=== PATIENT | male | born 1960 | race Caucasian/White ===

== ENCOUNTER 2019-01-17 05:14 | Emergency (ER) | payer OTHER ==
[2019-01-17 05:59] LABS: Absolute Lymphocytes (CBC) 1.9 K/uL (0.7-4.9); Absolute Monocytes 0.6 K/uL (0.1-1.3); Absolute Neutrophil 3.1 K/uL (1.8-8.0); Basophils % 1.3 % (0-1.3); Eosinophils % 2.7 % (0-4.4); Hematocrit 39.7 % (39.6-49.0); Lymphocytes % 32.2 % (15.3-44.8); MPV 8.8 fL (7.6-11.3); Monocytes % 10.5 % (3.3-12.3); RBC Red Blood Cell Count 3.84 M/uL (4.33-5.43)
[2019-01-17 06:19] LABS: Albumin 2.3 g/dL (3.4-5.0); Bilirubin Direct 0.7 mg/dL (0-0.2); Bilirubin Total 0.9 mg/dL (0.2-1.0); Potassium 3.2 mmol/L (3.5-5.1)
--- NOTE | 2019-01-17 06:27 | EDPHYS ---
Physician Documentation [facility] Name: Alejandro Troncoso Age: 58 yrs Sex: Male : 1960 Arrival Date: 01/17/2019 Time: 05:25 Bed 20 Private MD: ED Physician Jayce Fonseca HPI: 01/17 06:13 This 58 yrs old Male presents to ER via EMS with complaints of Abdominal Pain.gs 06:13 The patient presents with abdominal pain that is diffuse. Onset: The symptoms/episode gs began/occurred yesterday. The symptoms do not radiate. Associated signs and symptoms: Pertinent negatives: nausea and vomiting, diarrhea. The symptoms are described as crampy. Modifying factors: The symptoms are alleviated by nothing, the symptoms are aggravated by alcohol. Severity of pain: At its worst the pain was moderate in the emergency department the pain is unchanged. The patient has experienced similar episodes in the past, several times. Historical: - Allergies: 05:15 Codeine; cc3 - PMHx: 05:15 Cirrhosis; Hypertension; PTSD; Bipolar disorder; hepatitis C; cc3 - PSHx: 05:15 Paracentesis; Cholecystectomy; cc3 - Immunization history:: Adult Immunizations up to date. - Social history:: Smoking status: Patient uses tobacco products, smokes one pack cigarettes per day. - Ebola Screening: : No symptoms or risks identified at this time. ROS: 06:13 All other systems are negative. gs Exam: 06:13 Head/Face: Normocephalic, atraumatic. Eyes: Pupils equal round and reactive to light, gs extra-ocular motions intact. Lids and lashes normal. Conjunctiva and sclera are non-icteric and not injected. Cornea within normal limits. Periorbital areas with no swelling, redness, or edema. ENT: Nares patent. No nasal discharge, no septal abnormalities noted. Tympanic membranes are normal and external auditory canals are clear. Oropharynx with no redness, swelling, or masses, exudates, or evidence of obstruction, uvula midline. Mucous membranes moist. Neck: Trachea midline, no thyromegaly or masses palpated, and no cervical lymphadenopathy. Supple, full range of motion without nuchal rigidity, or vertebral point tenderness. No Meningismus. Chest/axilla: Normal chest wall appearance and motion. Nontender with no deformity. No lesions are appreciated. Cardiovascular: Regular rate and rhythm with a normal S1 and S2. No gallops, murmurs, or rubs. Normal PMI, no JVD. No pulse deficits. Respiratory: Lungs have equal breath sounds bilaterally, clear to auscultation and percussion. No rales, rhonchi or wheezes noted. No increased work of breathing, no retractions or nasal flaring. Back: No spinal tenderness. No costovertebral tenderness. Full range of motion. Skin: Warm, dry with normal turgor. Normal color with no rashes, no lesions, and no evidence of cellulitis. MS/ Extremity: Pulses equal, no cyanosis. Neurovascular intact. Full, normal range of motion. Neuro: Awake and alert, GCS 15, oriented to person, place, time, and situation. Cranial nerves II-XII grossly intact. Motor strength 5/5 in all extremities. Sensory grossly intact. Cerebellar exam normal. Normal gait. 06:13 Constitutional: The patient appears in no acute distress, alert, awake. 06:13 Abdomen/GI: Inspection: distension, that is moderate, Palpation: abdomen is soft and non-tender, in all quadrants, rebound tenderness, is not appreciated. 06:26 Musculoskeletal/extremity: Pulses: are normal with no appreciated deficits, Edema, 2+ gs to the left lower thigh, left knee, left midcalf, left ankle, right lower thigh, right knee, right midcalf and right ankle is noted. Vital Signs: 05:15 BP 136 / 89; Pulse 99; Resp 20 S; Temp 98.3(O); Pulse Ox 96% on R/A; Weight 61.23 kg cc3 (R); Height 5 ft. 8 in. (172.72 cm) (R); Pain 7/10; 06:30 BP 133 / 84; Pulse 75; Resp 15 S; Pulse Ox 98% on R/A; cc3 05:15 Body Mass Index 20.53 (61.23 kg, 172.72 cm) cc3 MDM: 05:29 Patient medically screened. gs 06:13 Differential diagnosis: gastritis, non-specific abd pain, pancreatitis. Data reviewed: gs vital signs, nurses notes, lab test result(s). Counseling: I had a detailed discussion with the patient and/or guardian regarding: the historical points, exam findings, and any diagnostic results supporting the discharge/admit diagnosis, lab results, the need for outpatient follow up. Response to treatment: the patient's symptoms have markedly improved after treatment, and as a result, I will discharge patient. 01/17 05:29 Order name: Basic Metabolic Panel; Complete Time: 06:24 01/17 05:29 Order name: CBC with Diff; Complete Time: 06:24 01/17 05:29 Order name: Hepatic Function; Complete Time: 06:24 01/17 05:29 Order name: Lipase; Complete Time: 06:24 01/17 05:29 Order name: IV Saline Lock; Complete Time: 05:48 01/17 05: Order name: AMMONIA; Complete Time: 06: 01/17 05: Order name: Labs collected and sent; Complete Time: 05:48 Administered Medications: No medications were administered Disposition: 01/17/19 06:25 Discharged to Home. Impression: Generalized abdominal pain, Alcoholic cirrhosis of liver, Ascites, Edema, unspecified. - Condition is Stable. - Discharge Instructions: Abdominal Pain, Adult. - Prescriptions for Pepcid 20 mg Oral Tablet - take 1 tablet by ORAL route every 12 hours for 10 days; 15 tablet. - Medication Reconciliation Form, Thank You Letter, Antibiotic Education, Prescription Opioid Use form. - Follow up: Dyana Escobar MD; When: 2 - 3 days; Reason: Re-evaluation by your physician. Signatures: Dispatcher [employer] EDMS David Guan RN RN Jayce Fonseca MD MD Jocelynn Young cc3 Corrections: (The following items were deleted from the chart) 06:27 06:25 01/17/2019 06:25 Discharged to Home. Impression: Generalized abdominal pain; Alcoholic cirrhosis of liver. Condition is Stable. Forms are Medication Reconciliation Form, Thank You Letter, Antibiotic Education, Prescription Opioid Use. Follow up: Dyana Escobar; When: 2 - 3 days; Reason: Re-evaluation by your physician. 07:22 06:27 01/17/2019 06:25 Discharged to Home. Impression: Generalized abdominal pain; hj Alcoholic cirrhosis of liver; Ascites; Edema, unspecified. Condition is Stable. Discharge Instructions: Abdominal Pain, Adult. Prescriptions for Pepcid 20 mg Oral Tablet - take 1 tablet by ORAL route every 12 hours for 10 days; 15 tablet. and Forms are Medication Reconciliation Form, Thank You Letter, Antibiotic Education, Prescription Opioid Use. Follow up: Dyana Escobar; When: 2 - 3 days; Reason: Re-evaluation by your physician. gs
--- NOTE | 2019-01-17 06:27 | ER ---
Nurse's Notes [facility] Name: Alejandro Troncoso Age: 58 yrs Sex: Male : 1960 Arrival Date: 01/17/2019 Time: 05:25 Bed 20 Private MD: Diagnosis: Generalized abdominal pain;Alcoholic cirrhosis of liver;Ascites;Edema, unspecified Presentation: 01/17 05:15 Presenting complaint: EMS states: "Right upper quadrant abdominal pain. Patient had 3 cc3 shots of vodka prior to our arrival" Patient said he's been having this abdominal pain for years. Patient also states having pain on his right scrotal area. Transition of care: patient was not received from another setting of care. Onset of symptoms was January 17, 2019. Risk Assessment: Do you want to hurt yourself or someone else? Patient reports no desire to harm self or others. Initial Sepsis Screen: Does the patient meet any 2 criteria? No. Patient's initial sepsis screen is negative. Does the patient have a suspected source of infection? No. Patient's initial sepsis screen is negative. Care prior to arrival: None. 05:15 Method Of Arrival: EMS: [facility] cc3 05:15 Acuity: IBETH 3 cc3 Triage Assessment: 05:15 General: Appears in no apparent distress. uncomfortable, Behavior is calm, cooperative, cc3 appropriate for age. Pain: Complains of pain in RUQ abdomen, right scrottal area Pain currently is 7 out of 10 on a pain scale. Quality of pain is described as aching, Pain began suddenly. EENT: No signs and/or symptoms were reported regarding the EENT system. Neuro: Level of Consciousness is awake, alert, obeys commands, Oriented to person, place, time, situation, Appropriate for age. Cardiovascular: Denies chest pain, Patient's skin is warm and dry. Respiratory: Airway is patent Respiratory effort is even, unlabored, Respiratory pattern is regular, symmetrical. GI: Abdomen is round distended. : No signs and/or symptoms were reported regarding the genitourinary system. Derm: No signs and/or symptoms reported regarding the dermatologic system. Musculoskeletal: Range of motion: intact in all extremities, Swelling present in bilateral pedal edema. Historical: - Allergies: 05:15 Codeine; cc3 - PMHx: 05:15 Cirrhosis; Hypertension; PTSD; Bipolar disorder; hepatitis C; cc3 - PSHx: 05:15 Paracentesis; Cholecystectomy; cc3 - Immunization history:: Adult Immunizations up to date. - Social history:: Smoking status: Patient uses tobacco products, smokes one pack cigarettes per day. - Ebola Screening: : No symptoms or risks identified at this time. Screenin:15 Abuse screen: Denies threats or abuse. Denies injuries from another. Nutritional cc3 screening: No deficits noted. Tuberculosis screening: No symptoms or risk factors identified. Fall Risk Ambulatory Aid- None/Bed Rest/Nurse Assist (0 pts). Gait- Normal/Bed Rest/Wheelchair (0 pts) Mental Status- Oriented to own ability (0 pts). Assessment: 05:15 General: see triage assessment. cc3 06:35 Reassessment: Patient appears in no apparent distress at this time. Patient and/or cc3 family updated on plan of care and expected duration. Pain level reassessed. Patient is alert, oriented x 3, equal unlabored respirations, skin warm/dry/pink. Dr. Fonseca discharged the patient home but patient said he wants to be rehydrated though explained that he cannot be given fluids because he's already distended on his abdomen and he already has bilateral pedal edema. Dr. Fonseca said he will come to the patient. 06:40 Reassessment: Patient appears in no apparent distress at this time. Patient and/or cc3 family updated on plan of care and expected duration. Pain level reassessed. Patient is alert, oriented x 3, equal unlabored respirations, skin warm/dry/pink. Dr. Fonseca spoke to the patient that he is discharged home and the patient agreed. Contacted the patient's stewarding supervisor Phoebe Avelar at [phone] and she said she will come to fetch the patient. IV cannula removed. Patient waiting for transport home. 07:07 Reassessment: awaiting for a ride;. General: Appears in no apparent distress. hj uncomfortable, Behavior is calm, cooperative, appropriate for age. Pain:. Neuro: Level of Consciousness is awake, alert, obeys commands, Oriented to person, place, time, situation, Appropriate for age. Cardiovascular: Capillary refill < 3 seconds Patient's skin is warm and dry. Respiratory: Airway is patent Respiratory effort is even, unlabored, Respiratory pattern is regular, symmetrical. GI: Bowel sounds present X 4 quads. Abd is soft. : No signs and/or symptoms were reported regarding the genitourinary system. EENT: No signs and/or symptoms were reported regarding the EENT system. Derm: No signs and/or symptoms reported regarding the dermatologic system. Musculoskeletal: No signs and/or symptoms reported regarding the musculoskeletal system. Vital Signs: 05:15 BP 136 / 89; Pulse 99; Resp 20 S; Temp 98.3(O); Pulse Ox 96% on R/A; Weight 61.23 kg cc3 (R); Height 5 ft. 8 in. (172.72 cm) (R); Pain 7/10; 06:30 BP 133 / 84; Pulse 75; Resp 15 S; Pulse Ox 98% on R/A; cc3 05:15 Body Mass Index 20.53 (61.23 kg, 172.72 cm) cc3 ED Course: 05:15 Patient has correct armband on for positive identification. Placed in gown. Bed in low cc3 position. Call light in reach. Side rails up X 1. supervisor alteration workroom on. Pulse ox on. NIBP on. 05:15 Arm band placed on right wrist. Patient notified of wait time. cc3 05:25 Patient arrived in ED. am2 05:29 Jayce Fonseca MD is Attending Physician. gs 05:30 Jocelynn Young is Primary Nurse. cc3 05:36 Triage completed. cc3 05:46 Inserted saline lock: 20 gauge in right antecubital area, using aseptic technique. ea Blood collected. 06:25 Dyana Escobar MD is Referral Physician. gs 06:40 IV discontinued, intact, bleeding controlled, No redness/swelling at site. Pressure cc3 dressing applied. 07:00 Report given to DEMETRIUS Guan. cc3 07:07 David Guan RN is Primary Nurse. hj 07:21 No provider procedures requiring assistance completed. hj Administered Medications: No medications were administered Outcome: 06:25 Discharge ordered by . gs 07:21 Discharged to home ambulatory. hj 07:21 Condition: stable 07:21 Discharge instructions given to patient, Instructed on discharge instructions, follow up and referral plans. medication usage, Demonstrated understanding of instructions, follow-up care, medications, Prescriptions given X 1. 07:22 Patient left the ED. hj Signatures: David Guan RN RN hj Moreno, Amanda am2 Mar Read RN RN ea Starr, Gregory, MD MD Jocelynn Young cc3
== END 2019-01-17 07:22 | disposition home or self-care (01) ==
LOC: ER 05:14
DX: K70.31 Alcoholic cirrhosis of liver with ascites (principal); R60.9 Edema, unspecified; I10 Essential (primary) hypertension; F43.10 Post-traumatic stress disorder, unspecified; F17.210 Nicotine dependence, cigarettes, uncomplicated; Z88.5 Allergy status to narcotic agent
CPT/HCPCS: 36415; 80048; 80076; 82140; 83690; 85025; 99284

== ENCOUNTER 2019-04-19 16:13 | Emergency (ER) | payer OTHER ==
--- OUTSIDE RECORDS SUMMARY | 2019-04-19 16:15 | XMS REPORT ---
:1960 [facility] Address [address] [place] [address] Dr. Lombardo [address] [place] [id number] Care Team Providers Name Role Phone Unavailable Unavailable Unavailable Problems This patient has no known problems. Allergies, Adverse Reactions, Alerts This patient has no known allergies or adverse reactions. Medications This patient has no known medications.
--- OUTSIDE RECORDS SUMMARY | 2019-04-19 16:16 | XMS REPORT ---
:1960 Author Organization [employer] Care Team Providers Name Role Phone Ashley Le Provider Role Unavailable Allergies No Known Allergies Problems Problem Type Condition Code Onset Dates Condition Status Problem Sinus problem J34.9 Active Problem Irritable bowel K58.9 Active Problem Other ascites R18.8 Active Problem Depression F32.9 Active Problem Generalized abdominal pain R10.84 Active Problem Polyarthralgia M25.50 Active Problem Anxiety F41.9 Active Problem Memory problem R41.3 Active Problem Reflux K21.9 Active Problem Rash and nonspecific skin eruption R21 Active Problem Bipolar disorder F31.9 Active Problem Hepatitis C virus infection without B19.20 Active hepatic coma, unspecified chronicity Problem High blood pressure I10 Active Problem Depression screening Z13.31 Active Problem Prostate disorder N42.9 Active Problem Gastroesophageal reflux disease, K21.9 Active esophagitis presence not specified Problem Unspecified cirrhosis of liver K74.60 Active Problem Circulation problem I99.9 Active Problem Ventral hernia without obstruction K43.9 Active or gangrene Problem Umbilical hernia without obstruction K42.9 Active and without gangrene Problem Swelling R60.9 Active Medications No Known Medications Results No Known Results Summary Purpose [employer] Submission
[2019-04-19 16:35] LABS: Absolute Lymphocytes (CBC) 1.7 K/uL (0.7-4.9); Basophils % 0.3 % (0-1.3); Hematocrit 38.9 % (39.6-49.0); Lymphocytes % 18.7 % (15.3-44.8); MPV 8.7 fL (7.6-11.3); RBC Red Blood Cell Count 4.02 M/uL (4.33-5.43)
[2019-04-19 17:01] LABS: Albumin 1.9 g/dL (3.4-5.0); Bilirubin Direct 0.6 mg/dL (0-0.2); Bilirubin Total 1.5 mg/dL (0.2-1.0); Potassium 4.2 mmol/L (3.5-5.1); Protein, Total 7.5 g/dL (6.4-8.2)
[2019-04-19] MEDS ORDERED: ONDANSETRON 4 MG/2 ML VIAL ONE (17:23)
[2019-04-19] MEDS ORDERED: MORPHINE 4 MG/ML SYR ONE ×2 (17:23→19:00)
--- NOTE | 2019-04-19 17:48 | RAD REPORT ---
EXAM DESCRIPTION: CTAbdomen Pelvis W Contrast - 04/19/2019 5:41 pm CLINICAL HISTORY: Abdominal pain. ABD PAIN COMPARISON: Abdomen Pelvis W Contrast dated 03/02/2016; CT ABD PELVIS W CONTRAST dated 03/24/2009 TECHNIQUE: Biphasic CT imaging of the abdomen and pelvis was performed with 100 ml non-ionic IV cont rast. All CT scans are performed using dose optimization technique as appropriate and may include automated exposure control or mA/KV adjustment according to patient size. FINDINGS: The lung bases are clear. Advanced cirrhosis of the liver is present. Cholecystectomy noted. The spleen, pancreas, adrenal glan ds and kidneys within normal limits. 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 Large volume ascites is present. No bowel obstruction. Normal appendix. No evidence of significant lymphadenopathy. Atherosclerosis. No suspicious bony findings. IMPRESSION: Large volume ascites. Advanced liver cirrhosis.
--- NOTE | 2019-04-19 19:15 | ER ---
Nurse's Notes [facility] Name: Alejandro Troncoso Age: 58 yrs Sex: Male : 1960 Arrival Date: 04/19/2019 Time: 16:11 Bed 4 Private MD: Diagnosis: Unspecified cirrhosis of liver;Ascites;Generalized abdominal pain Presentation: 04/19 16:16 Presenting complaint: EMS states: pt has hx of cirrhosis and Hep C, is due for a iw paracentesis, last tapped 13 days ago, called Dr. Escobar's office and was told to come to ER for admission. Transition of care: patient was not received from another setting of care. 16:16 Method Of Arrival: EMS: [facility] iw 16:26 Onset of symptoms was April 19, 2019. Risk Assessment: Do you want to hurt yourself sg or someone else? Patient reports no desire to harm self or others. Initial Sepsis Screen: Does the patient meet any 2 criteria? No. Patient's initial sepsis screen is negative. Does the patient have a suspected source of infection? No. Patient's initial sepsis screen is negative. Care prior to arrival: IV initiated. 20 GA, in the left antecubital area. 16:26 Acuity: IBETH 3 sg Historical: - Allergies: 16:29 Codeine; sg - Home Meds: 16:29 lactulose 10 gram/15 mL (15 mL) Oral soln 15 mL once daily [Active]; ranitidine HCl 150 sg mg Oral tab [Active]; furosemide 20 mg Oral tab 1 tab once daily [Active]; gabapentin 100 mg oral cap 1 caps twide daily for Neuropathic Pain [Active]; spironolactone 50 mg Oral tab 1 tab once daily [Active]; - PMHx: 16:29 Bipolar disorder; Cirrhosis; Hepatitis C; Hypertension; PTSD; sg - PSHx: 16:29 Paracentesis; Cholecystectomy; sg - Immunization history:: Adult Immunizations up to date. - Social history:: Smoking status: Patient uses tobacco products. - Ebola Screening: : Patient negative for fever greater than or equal to 101.5 degrees Fahrenheit, and additional compatible Ebola Virus Disease symptoms Patient denies exposure to infectious person Patient denies travel to an Ebola-affected area in the 21 days before illness onset. Screenin:30 Abuse screen: Denies threats or abuse. Denies injuries from another. Nutritional sg screening: No deficits noted. Tuberculosis screening: No symptoms or risk factors identified. Never had TB. Fall Risk None identified. Assessment: 16:34 General: Appears in no apparent distress. uncomfortable, ill, well developed, well sg nourished, Behavior is cooperative, appropriate for age, smells of cigarette smoke . Pain: Complains of pain in umbilical area, and abdomen Quality of pain is described as aching. Neuro: Level of Consciousness is awake, alert, obeys commands, Oriented to person, place, time, Coil Assembler are equal bilaterally Moves all extremities. Cardiovascular: Patient's skin is warm and dry. Chest pain is denied. Respiratory: Airway is patent Respiratory effort is even, unlabored, Respiratory pattern is regular, symmetrical. GI: Abdomen is round distended, Last BM was April 17, 2019. Bowel sounds present in left upper quadrant, right lower quadrant and left lower quadrant Abd is rigid in right upper quadrant, left upper quadrant, right lower quadrant and left lower quadrant Guarding noted Reports Pain is 10 out of 10 on a pain scale. : No signs and/or symptoms were reported regarding the genitourinary system. EENT: Nares are clear Oral mucosa is moist. Throat is clear. Derm: Skin is thin, Skin is dry, Skin is dusky, pale, Skin temperature is cool. Musculoskeletal: Circulation, motion, and sensation intact. Range of motion: intact in all extremities. 16:50 Reassessment: Patient appears in no apparent distress at this time. pt daughter November at bedside at this time. 17:56 Reassessment: Patient appears in no apparent distress at this time. Patient and/or sg family updated on plan of care and expected duration. Pain level reassessed. Patient is alert, oriented x 3, equal unlabored respirations, skin warm/dry/pink. pt talking calmly with daughter at bedside, pt reports pain is unchanged at this time, bed in low and locked position, the call light is within reach and the side rails remain upx2, no new orders received at this time, will continue to monitor Patient states symptoms have not improved. Neuro: Level of Consciousness is awake, alert, obeys commands, Oriented to person, place, time, situation, Speech is normal, Facial symmetry appears normal. 18:40 Reassessment: Patient appears in no apparent distress at this time. Patient and/or sg family updated on plan of care and expected duration. Pain level reassessed. Patient is alert, oriented x 3, equal unlabored respirations, skin warm/dry/pink. 18:52 Reassessment: Lupis VALENCIA at bedside, updating pt on results and POC, going over DC sg orders as well and care at home with a follow up in office/Clinic tomorrow for evaluation and further treatment, pt stated understanding, awaiting pt daughter to return to the department, awaiting discharge orders as well. 19:40 Reassessment: Patient appears in no apparent distress at this time. Patient is alert, rr5 oriented x 3, equal unlabored respirations, skin warm/dry/pink. awaiting for the transport. 20:10 Reassessment: ED provider speaking to daughter of the patient at bedside. rr5 20:25 Reassessment: Patient appears in no apparent distress at this time. Patient is alert, rr5 oriented x 3, equal unlabored respirations, skin warm/dry/pink. discharge instruction given and explained to patient and professional bass fisherman, agreed for the plan of care. Patient denies pain at this time. Patient states feeling better. Patient states symptoms have improved. Vital Signs: 16:33 BP 153 / 107; Pulse 87; Resp 19; Temp 99.0; Pulse Ox 96% on R/A; Pain 10/10; sg 17:56 BP 137 / 79; Pulse 79; Resp 16; Temp 98.9; Pulse Ox 96% on R/A; sg 18:40 BP 133 / 91; Pulse 79; Resp 17; Pulse Ox 97% on R/A; sg 19:14 BP 124 / 83; Pulse 84; Resp 12; Pulse Ox 100% on R/A; ak1 20:05 BP 125 / 80; Pulse 80; Resp 17; Pulse Ox 99% ; Pain 0/10; rr5 ED Course: 16:11 Patient arrived in ED. iw 16:17 Raghu Patrick PA is PHCP. cp 16:17 Holden Whitney MD is Attending Physician. cp 16:20 No provider procedures requiring assistance completed. Initial lab(s) drawn, by me, sg sent to lab. IV is patent, is intact, with fluids infusing freely, with good blood return, Flushed left antecubital with 5 ml normal saline. 16:23 Noman Guardado, RN is Primary Nurse. sg 16:26 Triage completed. sg 16:26 Arm band placed on. sg 16:34 Patient has correct armband on for positive identification. Placed in gown. Bed in low sg position. Call light in reach. Side rails up X2. media monitor on. Pulse ox on. NIBP on. 17:[address] sg 17:43 CT Abd/Pelvis - IV Contrast Only In Process Unspecified. EDMS 18:18 emergency contact number: November Karyna [phone]. bd 19:12 Dyana Escobar MD is Referral Physician. cp 20:25 IV discontinued, intact, bleeding controlled, No redness/swelling at site. Pressure rr5 dressing applied. Administered Medications: 17:30 Drug: morphine 4 mg Route: IVP; Site: left antecubital; sg 17:54 Follow up: Response: No adverse reaction; Pain is unchanged, physician notified; RASS: sg Alert and Calm (0) 17:30 Drug: Zofran 4 mg Route: IVP; Site: left antecubital; sg 17:54 Follow up: Response: No adverse reaction; Nausea is decreased sg 19:01 Drug: morphine 4 mg Route: IVP; Site: left antecubital; sg 20:00 Follow up: Response: No adverse reaction; RASS: Alert and Calm (0) rr5 Outcome: 19:14 Discharge ordered by MD. cp 20:28 Discharged to home via wheelchair, with family. rr5 20:28 Condition: stable 20:28 Discharge instructions given to patient, family, Instructed on discharge instructions, follow up and referral plans. Demonstrated understanding of instructions, follow-up care. 20:30 Patient left the ED. rr5 Signatures: Dispatcher [employer] EDMS Roberta Giles Noman Guardado, RN Jane Montanez RN RN iw Krenek, Amber, RN RN ak1 Raghu Patrick PA PA cp Roque, Raymond, RN RN rr5
--- NOTE | 2019-04-19 19:16 | EDPHYS ---
Physician Documentation [facility] Name: Alejandro Troncoso Age: 58 yrs Sex: Male : 1960 Arrival Date: 04/19/2019 Time: 16:11 Bed 4 Private MD: ED Physician Holden Whitney HPI: 04/19 16:30 This 58 yrs old Male presents to ER via EMS with complaints of Abdominal cp Distention - Cirrhosis. 16:30 The patient presents with abdominal pain that is diffuse, abdominal distention that is cp diffuse. Onset: The symptoms/episode began/occurred chronic. The symptoms do not radiate. Associated signs and symptoms: Pertinent negatives: blood in stools, chest pain, constipation, fever, palpitations, shortness of breath, testicular pain, vomiting. Patient with history of cirrhosis due to hep C. Was scheduled for routine paracentesis today with DR Escobar but was told to come to ED due to c/o abdominal pain. Historical: - Allergies: 16:29 Codeine; sg - Home Meds: 16:29 lactulose 10 gram/15 mL (15 mL) Oral soln 15 mL once daily [Active]; ranitidine HCl 150 sg mg Oral tab [Active]; furosemide 20 mg Oral tab 1 tab once daily [Active]; gabapentin 100 mg oral cap 1 caps twide daily for Neuropathic Pain [Active]; spironolactone 50 mg Oral tab 1 tab once daily [Active]; - PMHx: 16:29 Bipolar disorder; Cirrhosis; Hepatitis C; Hypertension; PTSD; sg - PSHx: 16:29 Paracentesis; Cholecystectomy; sg - Immunization history:: Adult Immunizations up to date. - Social history:: Smoking status: Patient uses tobacco products. - Ebola Screening: : Patient negative for fever greater than or equal to 101.5 degrees Fahrenheit, and additional compatible Ebola Virus Disease symptoms Patient denies exposure to infectious person Patient denies travel to an Ebola-affected area in the 21 days before illness onset. ROS: 16:35 Constitutional: Negative for body aches, chills, fever, poor PO intake. cp 16:35 Eyes: Negative for injury, pain, redness, and discharge. cp 16:35 Cardiovascular: Negative for chest pain, edema, palpitations. 16:35 Respiratory: Negative for cough, shortness of breath, wheezing. 16:35 Abdomen/GI: Positive for abdominal pain, abdominal distension, Negative for vomiting, diarrhea, constipation, black/tarry stool, rectal bleeding. 16:35 Back: Negative for radiated pain. 16:35 : Negative for urinary symptoms. 16:35 Skin: Negative for cellulitis, rash. 16:35 Neuro: Negative for altered mental status, headache, weakness. 16:35 All other systems are negative. Exam: 16:45 Constitutional: The patient appears in no acute distress, alert, awake, cp non-diaphoretic, non-toxic, well developed, well nourished. 16:45 Head/Face: Normocephalic, atraumatic. cp 16:45 Eyes: Periorbital structures: appear normal, Conjunctiva: normal, no exudate, no injection, Sclera: no appreciated abnormality, Lids and lashes: appear normal, bilaterally. 16:45 ENT: External ear(s): are unremarkable, Nose: is normal, Mouth: Lips: moist, Oral mucosa: pink and intact, moist, Posterior pharynx: is normal, airway is patent, no erythema, no exudate. 16:45 Chest/axilla: Inspection: normal, Palpation: is normal, no crepitus, no tenderness. 16:45 Cardiovascular: Rate: normal, Rhythm: regular, Edema: ankle edema, that is moderate, JVD: is not appreciated. 16:45 Respiratory: the patient does not display signs of respiratory distress, Respirations: normal, no use of accessory muscles, no retractions, no splinting, no tachypnea, labored breathing, is not present, Breath sounds: are clear throughout, no decreased breath sounds, no stridor, no wheezing. 16:45 Abdomen/GI: Inspection: distension, that is severe, Bowel sounds: active, all quadrants, Palpation: soft, in all quadrants, moderate abdominal tenderness, in all quadrants, involuntary guarding, is not appreciated, Hernia: noted in the umbilical area. 16:45 Back: pain, is absent, ROM is normal. 16:45 Skin: no rash present. 16:45 Neuro: Orientation: to person, place \T\ time. Mentation: is normal, Motor: moves all fours. Vital Signs: 16:33 BP 153 / 107; Pulse 87; Resp 19; Temp 99.0; Pulse Ox 96% on R/A; Pain 10/10; sg 17:56 BP 137 / 79; Pulse 79; Resp 16; Temp 98.9; Pulse Ox 96% on R/A; sg 18:40 BP 133 / 91; Pulse 79; Resp 17; Pulse Ox 97% on R/A; sg 19:14 BP 124 / 83; Pulse 84; Resp 12; Pulse Ox 100% on R/A; ak1 20:05 BP 125 / 80; Pulse 80; Resp 17; Pulse Ox 99% ; Pain 0/10; rr5 MDM: 16:20 Patient medically screened. cp 17:00 Differential diagnosis: bowel obstruction, pancreatitis, ascites, liver failure. cp 18:05 Data reviewed: vital signs, nurses notes, lab test result(s), radiologic studies, CT cp scan, I have discussed the patient's presentation/case with the attending Emergency Department Physician;. 18:05 Response to treatment: the patient's symptoms have markedly improved after treatment. cp 18:13 Physician consultation: Dyana Escobar MD was called at 18:10, was contacted at 18:10, regarding patient's condition, and will see patient in office, tomorrow, recommends discharge to home for f/u tomorrow in clinic. 19:13 ED course: VSS. Pain improved. Labs reviewed and stable, CT abdomen/pelvis negative for cp acute findings. Will discharge to home for continued monitoring. 04/19 16:21 Order name: Basic Metabolic Panel; Complete Time: 17:05 04/19 16:21 Order name: CBC with Diff; Complete Time: 17:05 04/19 17:07 Interpretation: Normal except: RBC 4.02; HGB 13.5; HCT 38.9; PLT 124. 04/19 16:21 Order name: Creatinine for Radiology; Complete Time: 17:05 04/19 16:21 Order name: Hepatic Function; Complete Time: 17:05 04/19 17:07 Interpretation: Reviewed. 04/19 16:21 Order name: Lipase; Complete Time: 17:05 04/19 16:21 Order name: AMMONIA; Complete Time: 17:05 04/19 16:21 Order name: IV Saline Lock; Complete Time: 16:23 04/19 16:21 Order name: Labs collected and sent; Complete Time: 16:23 04/19 17:15 Order name: CT Abd/Pelvis - IV Contrast Only; Complete Time: 18:01 cp Administered Medications: 17:30 Drug: morphine 4 mg Route: IVP; Site: left antecubital; sg 17:54 Follow up: Response: No adverse reaction; Pain is unchanged, physician notified; RASS: sg Alert and Calm (0) 17:30 Drug: Zofran 4 mg Route: IVP; Site: left antecubital; sg 17:54 Follow up: Response: No adverse reaction; Nausea is decreased sg 19:01 Drug: morphine 4 mg Route: IVP; Site: left antecubital; sg 20:00 Follow up: Response: No adverse reaction; RASS: Alert and Calm (0) rr5 Disposition: 04/19/19 19:14 Discharged to Home. Impression: Unspecified cirrhosis of liver, Ascites, Generalized abdominal pain. - Condition is Stable. - Discharge Instructions: Abdominal Pain, Adult, Ascites. - Medication Reconciliation Form, Thank You Letter, Antibiotic Education, Prescription Opioid Use form. - Follow up: Dyana Escobar MD; When: Tomorrow; Reason: Recheck today's complaints. - Problem is chronic. - Symptoms have improved. Addendum: 04/21/2019 07:01 Co-signature as Attending Physician, Holden Whitney MD. r n Signatures: Dispatcher [employer] EDNoman Carlin RN RN sg Nieto, Roman, MD MD rn Page, Corey, PA PA cp Roque, Raymond RN RN rr5 Corrections: (The following items were deleted from the chart) 04/19 20:30 19:14 04/19/2019 19:14 Discharged to Home. Impression: Unspecified cirrhosis of liver; rr5 Ascites; Generalized abdominal pain. Condition is Stable. Forms are Medication Reconciliation Form, Thank You Letter, Antibiotic Education, Prescription Opioid Use. Follow up: Dyana Escobar; When: Tomorrow; Reason: Recheck today's complaints. Problem is chronic. Symptoms have improved. cp 04/20 18:51 04/19 18:05 Counseling: I had a detailed discussion with the patient and/or guardian cp regarding: the historical points, exam findings, and any diagnostic results supporting the discharge/admit diagnosis, radiology results, the need for outpatient follow up, for definitive care, a wet washer machine, to return to the emergency department if symptoms worsen or persist or if there are any questions or concerns that arise at home, cp
== END 2019-04-19 20:30 | disposition home or self-care (01) ==
LOC: ER 16:13
DX: K74.60 Unspecified cirrhosis of liver (principal); R18.8 Other ascites; I10 Essential (primary) hypertension; B19.20 Unspecified viral hepatitis C without hepatic coma; F31.9 Bipolar disorder, unspecified; Z88.5 Allergy status to narcotic agent
CPT/HCPCS: 85025; 80048; 36415; 82140; 80076; 83690; 74177; 96375; 96374; 99285; Q9967; J2405

== ENCOUNTER 2019-04-24 14:17 | Observation (INO) | payer OTHER ==
--- OUTSIDE RECORDS SUMMARY | 2019-04-24 14:22 | XMS REPORT ---
:1960 [facility] [address] [place] [address] Dr. Lombardo [address] [place] [id number] Care Team Providers Name Role Phone Unavailable Unavailable Unavailable Problems This patient has no known problems. Allergies, Adverse Reactions, Alerts This patient has no known allergies or adverse reactions. Medications This patient has no known medications.
[2019-04-24] MEDS ORDERED: MORPHINE 4 MG/ML SYR ONE ×2 (15:10→15:55)
[2019-04-24] MEDS ORDERED: ONDANSETRON 4 MG/2 ML VIAL ONE (15:10)
[2019-04-24] MEDS ORDERED: CEFTRIAXONE/SWI 1gm 1 GM/10 ML SYR ONE (15:10)
[2019-04-24 15:54] LABS: Absolute Lymphocytes (CBC) 1.3 K/uL (0.7-4.9); Basophils % 0.7 % (0-1.3); Hematocrit 39.8 % (39.6-49.0); Lymphocytes % 16.7 % (15.3-44.8); MPV 8.2 fL (7.6-11.3); RBC Red Blood Cell Count 4.06 M/uL (4.33-5.43)
[2019-04-24 15:55] LABS: Protime INR 1.6
[2019-04-24 16:14] LABS: Albumin 1.9 g/dL (3.4-5.0); Bilirubin Direct 0.7 mg/dL (0-0.2); Bilirubin Total 1.6 mg/dL (0.2-1.0); Potassium 3.7 mmol/L (3.5-5.1); Protein, Total 7.6 g/dL (6.4-8.2)
[2019-04-24] MEDS ORDERED: LIDOCAINE 1% W/EPI 1:100,000 MDV 20 ML VIAL ONE (17:10)
[2019-04-24] MEDS ORDERED: HYDROMORPHONE HCL 1 MG/ML INJ ONE ×2 (17:32→21:10)
--- NOTE | 2019-04-24 19:51 | ER ---
Nurse's Notes [facility] Name: Alejandro Troncoso Age: 58 yrs Sex: Male : 1960 Arrival Date: 04/24/2019 Time: 14:24 Bed 30 Private MD: Diagnosis: Ascites Presentation: 04/24 14:24 Presenting complaint: EMS states: pt is from PCP scheduled to drain fluid from is ca1 abdomen. He c/o of nausea, vomiting and dizziness. Pt also reports vomiting in the morning with black colored substance possibly blood. Pt also has bilateral wheezes so we gave him A\T\A treatment. Transition of care: patient was received from another setting of care (ambulatory primary care physician practice). Onset of symptoms was April 24, 2019. Risk Assessment: Do you want to hurt yourself or someone else? Patient reports no desire to harm self or others. Initial Sepsis Screen: Does the patient meet any 2 criteria? No. Patient's initial sepsis screen is negative. Does the patient have a suspected source of infection? No. Patient's initial sepsis screen is negative. Care prior to arrival: Medication(s) given: Albuterol Neb x 1, Atrovent Neb x 1, zofran 4 mg, IV initiated. 20 GA, in the right forearm, Glucose check: 91. 14:24 Method Of Arrival: EMS: [facility] ca1 14:24 Acuity: IBETH 3 ca1 Triage Assessment: 14:24 General:. GI: Reports nausea, vomiting. ca1 Historical: - Allergies: 17:23 Codeine; aj1 - Home Meds: 17:23 furosemide 20 mg Oral tab 1 tab once daily [Active]; gabapentin 100 mg Oral cap 1 caps aj1 twide daily for Neuropathic Pain [Active]; lactulose 10 gram/15 mL (15 mL) Oral soln 15 mL once daily [Active]; spironolactone 50 mg Oral tab 1 tab once daily [Active]; ranitidine HCl 150 mg Oral tab [Active]; - PMHx: 17:23 Bipolar disorder; Cirrhosis; Hepatitis C; Hypertension; PTSD; aj1 - Immunization history:: Adult Immunizations up to date. - Social history:: Smoking status: Patient uses tobacco products, smokes 1.5 packs per day. - Ebola Screening: : Patient negative for fever greater than or equal to 101.5 degrees Fahrenheit, and additional compatible Ebola Virus Disease symptoms Patient denies exposure to infectious person Patient denies travel to an Ebola-affected area in the 21 days before illness onset No symptoms or risks identified at this time. - Family history:: not pertinent. Screenin:17 Abuse screen: Denies threats or abuse. Denies injuries from another. Nutritional aj1 screening: No deficits noted. Tuberculosis screening: No symptoms or risk factors identified. 22:40 Fall Risk No fall in past 12 months (0 pts). No secondary diagnosis (0 pts). IV access aj1 (20 points). Ambulatory Aid- None/Bed Rest/Nurse Assist (0 pts). Gait- Normal/Bed Rest/Wheelchair (0 pts) Mental Status- Overestimates/Forgets Limitations (15 pts.). Total [place] Fall Scale indicates Low Risk Score (25-44 pts). As available Patient and Family Educated on Fall Prevention Program and strategies. Assessment: 14:30 General: Appears in no apparent distress. uncomfortable, Behavior is cooperative, aj1 restless. Pain: Complains of pain in abdomen. Neuro: Level of Consciousness is awake, alert, obeys commands, Oriented to person, place, time, situation. Cardiovascular: Heart tones S1 S2 present Patient's skin is warm and dry. Respiratory: Reports shortness of breath Airway is patent Respiratory effort is even, unlabored, Respiratory pattern is regular, symmetrical, Breath sounds with wheezes bilaterally. GI: Abdomen is distended, Abdomen is tender to palpation X 4 quads. Abd is rigid X 4 quads. : No signs and/or symptoms were reported regarding the genitourinary system. EENT: No signs and/or symptoms were reported regarding the EENT system. Derm: Skin is dusky. Musculoskeletal: No signs and/or symptoms reported regarding the musculoskeletal system. Circulation, motion, and sensation intact. 15:30 Reassessment: Patient appears in no apparent distress at this time. No changes from aj1 previously documented assessment. Patient and/or family updated on plan of care and expected duration. Pain level reassessed. Patient is alert, oriented x 3, equal unlabored respirations, skin warm/dry/pink. 16:30 Reassessment: Patient and/or family updated on plan of care and expected duration. Pain aj1 level reassessed. General: Appears in no apparent distress. comfortable, Behavior is calm, cooperative. Neuro: Level of Consciousness is awake, alert, obeys commands, Oriented to person, place, time, situation. Cardiovascular: Heart tones S1 S2 present Patient's skin is warm and dry. Respiratory: Airway is patent Respiratory effort is even, unlabored, Respiratory pattern is regular, symmetrical. GI: Abdomen is distended. Derm: Skin is dusky. Musculoskeletal: Circulation, motion, and sensation intact. 17:24 Reassessment: Patient appears in no apparent distress at this time. No changes from aj1 previously documented assessment. Patient and/or family updated on plan of care and expected duration. Pain level reassessed. Patient is alert, oriented x 3, equal unlabored respirations, skin warm/dry/pink. 18:40 Reassessment: Patient appears in no apparent distress at this time. No changes from aj1 previously documented assessment. Patient and/or family updated on plan of care and expected duration. Pain level reassessed. Patient is alert, oriented x 3, equal unlabored respirations, skin warm/dry/pink. 19:00 Reassessment: Dr. Wu at bedside performing paracentesis. aj1 19:40 Reassessment: Patient and/or family updated on plan of care and expected duration. Pain aj1 level reassessed. General: Appears in no apparent distress. comfortable, Behavior is calm, cooperative. Neuro: Level of Consciousness is awake, alert, obeys commands, Oriented to person, place, time, situation. Cardiovascular: Patient's skin is warm and dry. Rhythm is sinus rhythm. Respiratory: Airway is patent Respiratory effort is even, unlabored, Respiratory pattern is regular, symmetrical. GI: Abdomen is distended. : No signs and/or symptoms were reported regarding the genitourinary system. Derm: Skin is dusky. Musculoskeletal: Circulation, motion, and sensation intact. 20:40 Reassessment: Patient appears in no apparent distress at this time. No changes from aj1 previously documented assessment. Patient and/or family updated on plan of care and expected duration. Pain level reassessed. Patient is alert, oriented x 3, equal unlabored respirations, skin warm/dry/pink. 21:40 Reassessment: Patient and/or family updated on plan of care and expected duration. Pain aj1 level reassessed. General: Appears in no apparent distress. comfortable, Behavior is calm, cooperative. Neuro: Level of Consciousness is awake, alert, obeys commands, Oriented to person, place, time, situation. Cardiovascular: Patient's skin is warm and dry. Rhythm is sinus rhythm. Respiratory: Airway is patent Respiratory effort is even, unlabored, Respiratory pattern is regular, symmetrical. GI: Abdomen is distended. Derm: Skin is dusky. Musculoskeletal: Circulation, motion, and sensation intact. 22:41 Reassessment: Patient appears in no apparent distress at this time. No changes from aj1 previously documented assessment. Patient and/or family updated on plan of care and expected duration. Pain level reassessed. Patient is alert, oriented x 3, equal unlabored respirations, skin warm/dry/pink. Vital Signs: 14:24 BP 118 / 79; Pulse 93; Resp 19 S; Temp 98.2(O); Pulse Ox 99% on R/A; Weight 68.04 kg ca1 (R); Height 5 ft. 8 in. (172.72 cm) (R); Pain 7/10; 15:30 BP 138 / 92; Pulse 81; Resp 18; Pulse Ox 100% on R/A; aj1 16:30 BP 120 / 89; Pulse 77; Resp 18; Pulse Ox 100% on R/A; aj1 17:25 BP 120 / 74; Pulse 83; Resp 18; Pulse Ox 100% on R/A; aj1 18:04 BP 134 / 89; Pulse 92; Resp 18; Pulse Ox 99% ; lt1 18:40 BP 103 / 70; Pulse 88; Resp 18; Pulse Ox 98% on R/A; aj1 19:00 BP 133 / 75; Pulse 105; Resp 16; Pulse Ox 99% on R/A; aj1 19:30 BP 149 / 90; Pulse 100; Resp 18; Pulse Ox 100% on R/A; aj1 20:00 BP 136 / 94; Pulse 94; Resp 18; Pulse Ox 99% on R/A; aj1 14:24 Body Mass Index 22.81 (68.04 kg, 172.72 cm) ca1 ED Course: 14:24 Patient arrived in ED. ca1 14:24 Geneva Wu MD is Attending Physician. ma2 14:24 Arm band placed on. ca1 14:28 Triage completed. ca1 15:07 Bernadette Gordon RN is Primary Nurse. aj1 17:17 Patient has correct armband on for positive identification. aj1 19:50 Geneva Arias MD is Hospitalizing Provider. ma2 22:00 Report given to DEMETRIUS Andrews. aj1 22:39 No provider procedures requiring assistance completed. Patient admitted, IV remains in aj1 place. Administered Medications: 15:00 Drug: Zofran 4 mg Route: IVP; Site: right antecubital; dm5 16:00 Follow up: Response: No adverse reaction aj1 15:00 Drug: morphine 4 mg Route: IVP; Site: right antecubital; dm5 16:00 Follow up: Response: No adverse reaction; Pain is decreased; RASS: Alert and Calm (0) aj1 15:59 Drug: Rocephin 1 grams Route: IV; Rate: calculated rate; Site: right antecubital; aj1 16:02 Follow up: IV Status: Completed infusion; IV Intake: 10ml aj1 16:00 Drug: morphine 4 mg {Note: RASS score 0- patient is alert.} Route: IVP; Site: right aj1 antecubital; 21:33 Follow up: Response: No adverse reaction; Anxiety decreased; RASS: Alert and Calm (0) aj1 17:36 Drug: Dilaudid 1 mg Route: IVP; Site: right antecubital; rv 21:33 Follow up: Response: No adverse reaction; Pain is decreased; RASS: Alert and Calm (0) aj1 19:00 Drug: Lidocaine-Epinephrine -1%: (1:100,000) 20 ml {Note: Administered to by Alzahri.} aj1 Volume: 20 ml; Route: Infiltration; 21:32 Follow up: Response: No adverse reaction aj1 21:00 Drug: Dilaudid 1 mg Route: IVP; Site: right antecubital; aj1 21:35 Follow up: Response: No adverse reaction; Pain is decreased; RASS: Alert and Calm (0) aj1 Intake: 16:02 IV: 10ml; Total: 10ml. aj1 Output: 22:34 Urine: 70ml (Voided); Total: 70ml. ca1 Outcome: 19:50 Decision to Hospitalize by Provider. ma2 22:41 Admitted to Med/surg accompanied by tech, via wheelchair, with chart. aj1 22:41 Condition: stable 22:41 Discharge instructions given to patient, family, Instructed on the need for admit, Demonstrated understanding of instructions. 22:42 Patient left the ED. aj1 Signatures: Bernadette Gordon RN RN aj1 Ilana Medina, RN RN dm5 Geneva Wu MD MD ma2 Venu Cee RN RN rv Karina Valdez RN RN ca1 Emily Lopez 1
--- NOTE | 2019-04-24 19:52 | EDPHYS ---
Physician Documentation [facility] Name: Alejandro Troncoso Age: 58 yrs Sex: Male : 1960 Arrival Date: 04/24/2019 Time: 14:24 Bed 30 Private MD: ED Physician Geneva Wu HPI: 04/24 19:47 This 58 yrs old Male presents to ER via EMS with complaints of ma2 Nausea/Vomiting. 19:47 The patient presents to the emergency department with nausea, vomiting. Onset: The ma2 symptoms/episode began/occurred gradually, 1 day(s) ago. Possible causes: unknown. Associated signs and symptoms: Pertinent positives: abdominal pain, Pertinent negatives: anorexia, constipation, dysuria, flatulence. Severity of symptoms: At their worst the symptoms were moderate in the emergency department the symptoms are unchanged. The patient has not experienced similar symptoms in the past, The patient has experienced similar episodes in the past. send by dr. maguire for possible sbp. Historical: - Allergies: 17:23 Codeine; aj1 - Home Meds: 17:23 furosemide 20 mg Oral tab 1 tab once daily [Active]; gabapentin 100 mg Oral cap 1 caps aj1 twide daily for Neuropathic Pain [Active]; lactulose 10 gram/15 mL (15 mL) Oral soln 15 mL once daily [Active]; spironolactone 50 mg Oral tab 1 tab once daily [Active]; ranitidine HCl 150 mg Oral tab [Active]; - PMHx: 17:23 Bipolar disorder; Cirrhosis; Hepatitis C; Hypertension; PTSD; aj1 - Immunization history:: Adult Immunizations up to date. - Social history:: Smoking status: Patient uses tobacco products, smokes 1.5 packs per day. - Ebola Screening: : Patient negative for fever greater than or equal to 101.5 degrees Fahrenheit, and additional compatible Ebola Virus Disease symptoms Patient denies exposure to infectious person Patient denies travel to an Ebola-affected area in the 21 days before illness onset No symptoms or risks identified at this time. - Family history:: not pertinent. ROS: 19:47 Constitutional: Negative for fever, chills, and weight loss. ma2 19:47 All other systems are negative. Exam: 19:47 Constitutional: This is a well developed, well nourished patient who is awake, alert, ma2 and in no acute distress. Head/Face: Normocephalic, atraumatic. Eyes: Pupils equal round and reactive to light, extra-ocular motions intact. Lids and lashes normal. Conjunctiva and sclera are non-icteric and not injected. Cornea within normal limits. Periorbital areas with no swelling, redness, or edema. ENT: Nares patent. No nasal discharge, no septal abnormalities noted. Tympanic membranes are normal and external auditory canals are clear. Oropharynx with no redness, swelling, or masses, exudates, or evidence of obstruction, uvula midline. Mucous membranes moist. Chest/axilla: Normal chest wall appearance and motion. Nontender with no deformity. No lesions are appreciated. Cardiovascular: Regular rate and rhythm with a normal S1 and S2. No gallops, murmurs, or rubs. Normal PMI, no JVD. No pulse deficits. Respiratory: Lungs have equal breath sounds bilaterally, clear to auscultation and percussion. No rales, rhonchi or wheezes noted. No increased work of breathing, no retractions or nasal flaring. Back: No spinal tenderness. No costovertebral tenderness. Full range of motion. 19:47 Abdomen/GI: Inspection: distension, Palpation: mild abdominal tenderness, rebound tenderness, Liver: is firm, is enlarged. Vital Signs: 14:24 BP 118 / 79; Pulse 93; Resp 19 S; Temp 98.2(O); Pulse Ox 99% on R/A; Weight 68.04 kg ca1 (R); Height 5 ft. 8 in. (172.72 cm) (R); Pain 7/10; 15:30 BP 138 / 92; Pulse 81; Resp 18; Pulse Ox 100% on R/A; aj1 16:30 BP 120 / 89; Pulse 77; Resp 18; Pulse Ox 100% on R/A; aj1 17:25 BP 120 / 74; Pulse 83; Resp 18; Pulse Ox 100% on R/A; aj1 18:04 BP 134 / 89; Pulse 92; Resp 18; Pulse Ox 99% ; lt1 18:40 BP 103 / 70; Pulse 88; Resp 18; Pulse Ox 98% on R/A; aj1 19:00 BP 133 / 75; Pulse 105; Resp 16; Pulse Ox 99% on R/A; aj1 19:30 BP 149 / 90; Pulse 100; Resp 18; Pulse Ox 100% on R/A; aj1 20:00 BP 136 / 94; Pulse 94; Resp 18; Pulse Ox 99% on R/A; aj1 14:24 Body Mass Index 22.81 (68.04 kg, 172.72 cm) ca1 Procedures: 19:47 Paracentesis: The risks and benefits of the procedure were discussed with the patient ma2 or guardian in detail, aseptic technique was employed throughout the procedure, the catheter was placed in the left upper quadrant, appoximately 6 liters of fluid was removed, the fluid was serous, the patient tolerated the procedure well, the patient did not experience any apparent complications. MDM: 14:24 Patient medically screened. ma2 19:47 Differential diagnosis: cholecystitis, pancreatitis, viral gastroenteritis, SBP. Data ma2 reviewed: vital signs, nurses notes. Counseling: I had a detailed discussion with the patient and/or guardian regarding: the historical points, exam findings, and any diagnostic results supporting the discharge/admit diagnosis, the presence of at least one elevated blood pressure reading (>120/80) during this emergency department visit, the need for outpatient follow up. Response to treatment: the patient's symptoms have mildly improved after treatment. ED course: discussed with dr. elias . 04/24 14:38 Order name: Basic Metabolic Panel; Complete Time: 16:34 [facility] 04/24 14:38 Order name: CBC with Diff; Complete Time: 16:03 [facility] 04/24 14:38 Order name: Creatinine for Radiology; Complete Time: 16:34 [facility] 04/24 14:38 Order name: Hepatic Function; Complete Time: 16:34 [facility] 04/24 14:38 Order name: Lipase; Complete Time: 16:34 [facility] 04/24 14:50 Order name: Blood Culture Adult (2) [facility] 04/24 15:06 Order name: PT-INR; Complete Time: 16:34 [facility] 04/24 15:06 Order name: AMMONIA; Complete Time: 16:34 [facility] 04/24 15:14 Order name: Fluid Cell Count,Body [facility] 04/24 15:14 Order name: Misc. Lab Test [facility] 04/24 20:01 Order name: Body Fluid Culture EDMI 04/24 14:38 Order name: IV Saline Lock; Complete Time: 15:48 wi2 04/24 20:04 Order name: Miscellaneous Test Lab [facility] 04/24 21:13 Order name: CONS Pharmacy Consult EDMI 04/24 21:13 Order name: Full Liquid EDMI 04/24 21:13 Order name: CBC with Automated Diff EDMS 04/24 21:13 Order name: CBC with Automated Diff EDMI 04/24 21:13 Order name: Comprehensive Metabolic Panel [facility] 04/24 21:13 Order name: Comprehensive Metabolic Panel [facility] 04/24 22:35 Order name: Urine Dipstick--Ancillary (enter results) [facility] 04/24 14:38 Order name: Labs collected and sent; Complete Time: 15:48 ma2 04/24 14:38 Order name: Urine Dipstick-Ancillary (obtain specimen); Complete Time: 22:34 wi2 04/24 14:49 Order name: Dressing - Wound; Complete Time: 21:30 [facility] 04/24 14:49 Order name: Gloves, Sterile; Complete Time: 18:17 [facility] 04/24 14:49 Order name: Peritoneal Lavage Setup; Complete Time: 17:38 ma2 Administered Medications: 15:00 Drug: Zofran 4 mg Route: IVP; Site: right antecubital; dm5 16:00 Follow up: Response: No adverse reaction [facility] 15:00 Drug: morphine 4 mg Route: IVP; Site: right antecubital; dm5 16:00 Follow up: Response: No adverse reaction; Pain is decreased; RASS: Alert and Calm (0) [facility] 15:59 Drug: Rocephin 1 grams Route: IV; Rate: calculated rate; Site: right antecubital; aj1 16:02 Follow up: IV Status: Completed infusion; IV Intake: 10ml [facility] 16:00 Drug: morphine 4 mg {Note: RASS score 0- patient is alert.} Route: IVP; Site: right aj1 antecubital; 21:33 Follow up: Response: No adverse reaction; Anxiety decreased; RASS: Alert and Calm (0) [facility] 17:36 Drug: Dilaudid 1 mg Route: IVP; Site: right antecubital; rv 21:33 Follow up: Response: No adverse reaction; Pain is decreased; RASS: Alert and Calm (0) [facility] 19:00 Drug: Lidocaine-Epinephrine -1%: (1:100,000) 20 ml {Note[facility] aj1 Volume: 20 ml; Route: Infiltration; 21:32 Follow up: Response: No adverse reaction aj1 21:00 Drug: Dilaudid 1 mg Route: IVP; Site: right antecubital; aj1 21:35 Follow up: Response: No adverse reaction; Pain is decreased; RASS: Alert and Calm (0) aj1 Disposition: 04/24/19 19:50 Hospitalization ordered by Geneva Elias for Observation. Preliminary diagnosis is Ascites. - Bed requested for Telemetry/MedSurg (observation). - Status is Observation. aj1 - Condition is Fair. - Problem is new. - Symptoms have improved. UTI on Admission? No Signatures: Dispatcher [employer] EDMS Bernadette Gordon RN RN aj1 Ilana Medina RN RN dm5 Juju Molina RN RN Geneva Wu MD MD ma2 Venu Cee RN RN rv Karina Valdez RN RN ca1 Corrections: (The following items were deleted from the chart) 20:00 15:16 Miscellaneous Lab Test+R.LAB.BRZ ordered. EDMS EDMS 20:03 15:16 LACTIC DEHYDROGENASE+C.LAB.BRZ ordered. EDMI EDMS 20:04 15:16 GLUCOSE+C.LAB.BRZ ordered. EDMI EDMS 21:31 19:50 Hospitalization Ordered by Geneva Elias MD for Observation. Preliminary cg diagnosis is Ascites. Bed requested for Telemetry/MedSurg (observation). Status is Observation. Condition is Fair. Problem is new. Symptoms have improved. UTI on Admission? No. ma2 22:42 21:31 04/24/2019 19:50 Hospitalization Ordered by Geneva Elias MD for Observation. aj1 Preliminary diagnosis is Ascites. Bed requested for Telemetry/MedSurg (observation). Status is Observation. Condition is Fair. Problem is new. Symptoms have improved. UTI on Admission? No. cg
[2019-04-24 20:23] LABS: Appearance CLEAR (CLEAR); Body Fluid Source PERITONEAL; Body Fluid WBC 12 /mm^3; Color of fluid Yellow (COLORLESS)
[2019-04-24] MEDS ORDERED: ONDANSETRON 4 MG/2 ML VIAL IV PRN (21:04)
[2019-04-24] MEDS ORDERED: ACETAMINOPHEN 500 MG TAB PO PRN (21:04)
[2019-04-24] MEDS ORDERED: MORPHINE 2 MG/ML SYR IV PRN (21:04)
[2019-04-24 23:31] VITALS: BMI 21.3
[2019-04-24] MEDS ORDERED: HYDROMORPHONE HCL 0.5 MG/0.5 ML INJ IV ONE (23:53)
[2019-04-25] MEDS ORDERED: PIPER/TAZO/NS 3.375gm 6.750 GM/200 ML BAG ONE (00:40)
[2019-04-25] MEDS ORDERED: NA CHLORIDE 0.9% 250 ML ONE (00:56)
[2019-04-25] MEDS: PIPER/TAZO/NS 3.375gm 3.375 GM/100 ML BAG IVPB SCH ×2 (00:56→05:23)
[2019-04-25 01:48] LABS: Urine Blood NEGATIVE (NEG); Urine Glucose NEGATIVE (NEG); Urine Protein NEGATIVE (NEG); Urine pH 5.5 (5.0-7.0)
[2019-04-25 06:10] LABS: Absolute Lymphocytes (CBC) 1.8 K/uL (0.7-4.9); Basophils % 0.4 % (0-1.3); Hematocrit 43.5 % (39.6-49.0); Lymphocytes % 20.1 % (15.3-44.8); MPV 8.2 fL (7.6-11.3); RBC Red Blood Cell Count 4.34 M/uL (4.33-5.43)
[2019-04-25 06:27] LABS: Albumin 2.1 g/dL (3.4-5.0); Bilirubin Total 1.4 mg/dL (0.2-1.0); Potassium 4.2 mmol/L (3.5-5.1); Protein, Total 7.8 g/dL (6.4-8.2)
--- NOTE | 2019-04-25 10:00 | P.HP ---
Certification for Inpatient Patient admitted to: Observation With expected LOS: <2 Midnights Patient will require the following post-hospital care: None Practitioner: I am a practitioner with admitting privileges, knowledge of patient current condition, hospital course, and medical plan of care. Services: Services provided to patient in accordance with Admission requirements found in Title 42 Section 412.3 of the Code of Federal Regulations Patient History Date of Service: 04/24/19 Reason for admission: abdominal pain / ascites History of Present Illness: Patient is a 58-year-old gentleman who came to the hospital with abdominal distention and discomfort. He saw his supervisor [employer] who recommended he get to the ER and get a diagnostic paracentesis. Patient was treated with antibiotics for the last 5 days. His symptoms were not improving so he came into the ER for further evaluation. In the ER he had a paracentesis performed. Patient's white blood cell count and the peritoneal fluid was unremarkable. We will continue with antibiotics but patient should be able to be discharged in a.m. if he is afebrile and labs were stable. Patient has a longstanding history of cirrhosis secondary to alcohol and hepatitis C. Patient also has been informed that he may need a transplant. Patient is in different as to what he wants to do. However, this can be further evaluated and assessed during his outpatient follow-up appointments. Allergies codeine Allergy (Verified 04/24/19 23:34) Itching/Hives/Rash Home Medications: Furosemide 2 tab PO DAILY 04/25/19 Gabapentin 1 tab PO BID 04/25/19 Lactulose 15 ml PO DAILY 04/25/19 Ranitidine [Zantac*] 1 tab PO DAILY 04/25/19 Spironolactone 1 tab PO DAILY 04/25/19 - Past Medical/Surgical History Has patient received pneumonia vaccine in the past: No Diabetic: No -: Bipolar -: Cirrhosis -: Hep C -: PTSD -: Cholecystectomy - Family History Father History Unknown: Yes - Social History Smoking Status: Current every day smoker Alcohol use: No CD- Drugs: No Caffeine use: No Place of Residence: Home Review of Systems 10-point ROS is otherwise unremarkable Physical Examination - Vital Signs Temperature: 97.9 F Blood Pressure: 120/77 Pulse: 92 Respirations: 20 Pulse Ox (%): 4 - Physical Exam General: Alert, In no apparent distress, Oriented x3 HEENT: Atraumatic, PERRLA, Mucous membr. moist/pink, EOMI, Sclerae nonicteric Neck: Supple, 2+ carotid pulse no bruit, No LAD, Without JVD or thyroid abnormality Respiratory: Clear to auscultation bilaterally, Normal air movement Cardiovascular: Regular rate/rhythm, Normal S1 S2, No murmurs Gastrointestinal: Normal bowel sounds, No tenderness, No rebound, No guarding, Distended Musculoskeletal: No clubbing, No tenderness, Swelling Integumentary: No rashes Neurological: Normal gait, Normal speech, Normal strength at 5/5 x4 extr, Normal tone, Sensation intact, Cranial nerves 3-12 intact, Normal affect Lymphatics: No axilla or inguinal lymphadenopathy - Studies Laboratory Data (last 24 hrs) 04/24/19 19:17: Glucose Cancelled 04/24/19 15:35: PT 18.5 H, INR 1.60 04/24/19 15:35: Creatinine 1.12 04/24/19 15:35: WBC 7.8 D, Hgb 13.6, Hct 39.8, Plt Count 143 L 04/24/19 15:35: Sodium 134 L, Potassium 3.7, BUN 11, Creatinine 1.10, Glucose 92 , Total Bilirubin 1.6 H, AST 53 H, ALT 37, Alkaline Phosphatase 247 H, Lipase 433 H Assessment & Plan - Problems (Diagnosis) (1) Alcoholic cirrhosis Current Visit: Yes Status: Acute (2) Hepatitis C Current Visit: Yes Status: Acute (3) Spontaneous bacterial peritonitis Current Visit: Yes Status: Acute - Plan Plan: 1. IV antibiotics 2. GI consultation 3. Pain control 4. Outpatient follow-up with centrifugal screen tender 5. GI and DVT prophylaxis Discharge Plan: Home Plan to discharge in: 24 Hours - Advance Directives Does patient have a Living Will: No Does patient have a Durable POA for Healthcare: No - Code Status/Comfort Care Code Status Assessed: Yes Code Status: Full Code Critical Care: No Time Spent Managing PTS Care (In Minutes): 45
[2019-04-25] MEDS ORDERED: PIPER/TAZO/NS 3.375gm 3.375 GM/100 ML BAG IVPB SCH (11:00)
[2019-04-25 13:56] VITALS: BP 144/89; TEMP 97.7
[2019-04-25 14:23] VITALS: O2SAT 98
--- NOTE | 2019-04-25 16:03 | P.DS ---
Admission Date: 04/24/19 Discharge Date: 04/25/19 Disposition: ROUTINE DISCHARGE Discharge Condition: GOOD Reason for Admission: abdominal pain / ascites Consultations: None Procedures: US guided paracentesis - Problems (1) Ascites Status: Acute (2) Alcoholic cirrhosis Status: Chronic (3) Hepatitis C Status: Chronic Brief History of Present Illness: 58-year-old man with a long-standing history of liver cirrhosis secondary to hepatitis-C and alcoholism was referred to the emergency department by his booking prizer with the consent of for spontaneous bacterial peritonitis. The patient has ascites and has undergone paracentesis 4 times this month. He was having abdominal pain for which he was prescribed antibiotics for suspected spontaneous bacterial peritonitis. The patient is abdominal pain did not improve hence his referral to the ED to be evaluated for peritonitis. Paracentesis was performed in the ED, cell count was unremarkable and did not suggest the presence of peritonitis. The patient was then hospitalized for observation. Hospital Course: The patient was observed overnight. No fever was recorded. He remained stable. Of note about 6L of ascitic fluid was removed. SBP has been ruled out. Patient is discharged to follow with his booking prizer regarding further management of the ascites. Vital Signs/Physical Exam: Temp Pulse Resp BP Pulse Ox 97.7 F 80 18 144/89 H 99 04/25/19 12:00 04/25/19 12:00 04/25/19 12:00 04/25/19 12:00 04/25/19 12:00 Laboratory Data at Discharge: WBC 8.8 K/uL (4.3-10.9) 04/25/19 05:35 Hgb 14.7 g/dL (13.6-17.9) 04/25/19 05:35 Hct 43.5 % (39.6-49.0) 04/25/19 05:35 Plt Count 132 K/uL (152-406) L 04/25/19 05:35 PT 18.5 SECONDS (9.5-12.5) H 04/24/19 15:35 INR 1.60 04/24/19 15:35 Sodium 131 mmol/L (136-145) L 04/25/19 05:35 Potassium 4.2 mmol/L (3.5-5.1) 04/25/19 05:35 BUN 11 mg/dL (7-18) 04/25/19 05:35 Creatinine 1.25 mg/dL (0.55-1.3) 04/25/19 05:35 Glucose 101 mg/dL (74-106) 04/25/19 05:35 Total Bilirubin 1.4 mg/dL (0.2-1.0) H 04/25/19 05:35 AST 55 U/L (15-37) H 04/25/19 05:35 ALT 38 U/L (12-78) 04/25/19 05:35 Alkaline Phosphatase 237 U/L (45-117) H 04/25/19 05:35 Lipase 433 U/L (73-393) H 04/24/19 15:35 Home Medications: Furosemide 2 tab PO DAILY 04/25/19 Gabapentin 1 tab PO BID 04/25/19 Lactulose 15 ml PO DAILY 04/25/19 Ranitidine [Zantac*] 1 tab PO DAILY 04/25/19 Spironolactone 1 tab PO DAILY 04/25/19 Diet: Regular Activity: Ad rut Followup: Dyana Escobar MD [ACTIVE - CAN ADMIT] - 1-2 Weeks
== END 2019-04-25 13:19 | disposition home or self-care (01) ==
LOC: ER 14:17 → ERHOLD 21:04 → 2ND 22:09
PROVIDERS: ADMIT Hospitalist; ATTEND Internal Medicine
PROC: 0W9G3ZZ Drainage of Peritoneal Cavity, Percutaneous Approach (ICD-10-PCS; principal; 2019-04-24)
DX: K65.2 Spontaneous bacterial peritonitis (principal); K70.31 Alcoholic cirrhosis of liver with ascites; B19.20 Unspecified viral hepatitis C without hepatic coma; F31.9 Bipolar disorder, unspecified; F43.10 Post-traumatic stress disorder, unspecified; F17.200 Nicotine dependence, unspecified, uncomplicated
CPT/HCPCS: 87040 ×2; 87070; 85025 ×2; 80048; 36415; 82140; 89050; 85610; 80076; 81003; 83690; 80053; 96375; 96374; 99285; 49082; J2543 ×2; J2270; J1170 ×3; J0696; J2405; G0378 ×3

== ENCOUNTER 2019-07-22 12:48 | Emergency (ER) | payer OTHER ==
--- OUTSIDE RECORDS SUMMARY | 2019-07-22 12:53 | XMS REPORT ---
:1960 [facility] Address [address] [place] [address] Care Team Providers Name Role Phone KATHY RUSSO Unavailable Unavailable Problems This patient has no known problems. Allergies, Adverse Reactions, Alerts This patient has no known allergies or adverse reactions. Medications This patient has no known medications. Results Test Description Test Time Test Comments Text Results Atomic Results Result Comments U/S, PARACENTESIS 2019-06-26 Labs to be FINAL REPORT PATIENT ID: [id number] ordered:->Body Fluid [id number] Ultrasound guided Culture (w/Gram Stain, paracentesis Clinical C\T\S)cell count Labs History: Ascites. to be ordered:->Other Sedation: None. (please add Inspector Returned Materials: Sylvie comment)Reason for FARA Jackson Supervising exam:->ABDOMINAL Physician: David Merino MD PAIN/Ascites Disk Grinder: None. Estimated Blood Loss: < 1 mL. Specimen: 16,400 mL of cloudy yellow fluid, samples sent to laboratory. Technique: Informed consent was obtained. The risks of pain, bleeding, infection, bowel perforation, injury to adjacent structures, and adverse medication reactions were discussed with the patient. After informed consent was obtained, the patient's abdomen was scanned. The right lower quadrant of the abdomen was selected for paracentesis. After the largest fluid pocket area was marked, and the anterior abdominal wall was evaluated with color Doppler to exclude presence of blood vessels traversing the area, the skin was prepped and draped in the usual sterile manner. After local anesthesia was achieved with lidocaine, a 5 Spanish one-step catheter was advanced into the peritoneal cavity under ultrasound guidance. After completion of drainage, the catheter was removed. There was no evidence of complication. Impression:Successful ultrasound guided paracentesis. Signed: David Merino MDReport Verified Date/Time: 06/26/2019 09:39:04 Reading Location: [facility] [id number] Ultrasound Reading Room FLUID CULTURE + GRAM STAIN 2019-06-22 11:44:00 Test Item Value Reference Range Comments CULTURE (BEAKER) (test jcvo=2579) No growth GRAM STAIN RESULT (BEAKER) (test iltf=6385) No WBCs GRAM STAIN RESULT (BEAKER) (test cfki=81074) No organisms seen RUBELLA ANTIBODY, [id number] 10:28:00 Test Item Value Reference Range Comments RUBELLA IGG QUANTITATION (BEAKER) (test qcll=597) 16.0 IU/mL <8.0 Rubella IgG Result Interpretation: </=7.0 IU/mL Negative - Presumed non- immune 8.0 - 9.9 IU/mL Equivocal >=10.0 IU/mL Positive - Presumed immuneTISSUE [id number] 18:07:00Surgical Pathology Report Case: [id number] Authorizing Provider: Nicolasa Sheldon MD Collected: 06/15/2019 1548 Ordering Location: [facility] PERIOPERATIVE Received: 2018 0900 SERVICES Pathologist: Zoie Villareal MD Specimen: Hernia Sac, Umbilical SOFT TISSUE, UMBILICAL , HERNIORRHAPHY- CONSISTENT WITH HERNIA SAC Signing Pathologist Direct Phone Line: [phone] signed by Zoie Villareal MD on 2018 at 6:07 [id number] hernia with obstruction without gangreneHernia sac, umbilical The specimen is a membranous collapsed sac, 4 x 4 x 0.2 cm in maximum thickness. Portions of the external surface are partially covered by adipose tissue. Sales Center Manager sections are submitted in block A1. HL/pl Performed.[facility], Department of Pathology, [address] [place] [address], [facility] [place] [place], [address] [place] [address], [facility], [address] [place] [address], DOJ W/PLT COUNT & AUTO [id number] 12:34:00 Test Item Value Reference Range Comments WHITE BLOOD CELL COUNT (BEAKER) (test emqw=894) 6.9 K/ L 3.5-10.5 RED BLOOD CELL COUNT (BEAKER) (test znae=424) 3.56 M/ L 4.63-6.08 HEMOGLOBIN (BEAKER) (test ctwx=327) 11.9 GM/DL 13.7-17.5 HEMATOCRIT (BEAKER) (test ffkk=075) 34.5 % 40.1-51.0 MEAN CORPUSCULAR VOLUME (BEAKER) (test rytt=307) 96.9 fL 79.0-92.2 MEAN CORPUSCULAR HEMOGLOBIN (BEAKER) (test 33.4 pg 25.7-32.2 tdzm=536) MEAN CORPUSCULAR HEMOGLOBIN CONC (BEAKER) (test 34.5 GM/DL 32.3-36.5 yzhn=967) RED CELL DISTRIBUTION WIDTH (BEAKER) (test 14.4 % 11.6-14.4 svza=592) PLATELET COUNT (BEAKER) (test uqmw=400) 81 K/CU MM 150-450 MEAN PLATELET VOLUME (BEAKER) (test uxna=103) 10.3 fL 9.4-12.4 NUCLEATED RED BLOOD CELLS (BEAKER) (test 0 /100 WBC 0-0 feil=917) (CELLAVISION MANUAL DIFF)2019-06-20 12:34:00 Test Item Value Reference Range Comments NEUTROPHILS - REL (CELLAVISION)(BEAKER) (test 74 % izeh=0082) LYMPHOCYTES - REL (CELLAVISION)(BEAKER) (test 17 % bxqy=3829) MONOCYTES - REL (CELLAVISION)(BEAKER) (test 7 % sdkk=8575) EOSINOPHILS - REL (CELLAVISION)(BEAKER) (test 1 % fnac=5849) BASOPHILS - REL (CELLAVISION)(BEAKER) (test 1 % ovty=7573) NEUTROPHILS - ABS (CELLAVISION)(BEAKER) (test 5.11 K/ul 1.78-5.38 plsc=3906) LYMPHOCYTES - ABS (CELLAVISION)(BEAKER) (test 1.17 K/ul 1.32-3.57 tlpl=4825) MONOCYTES - ABS (CELLAVISION)(BEAKER) (test 0.48 K/uL 0.30-0.82 tlwu=9790) EOSINOPHILS - ABS (CELLAVISION)(BEAKER) (test 0.07 K/uL 0.04-0.54 oxqg=3384) BASOPHILS - ABS (CELLAVISION)(BEAKER) (test 0.07 K/uL 0.01-0.08 mgfh=5636) TOTAL COUNTED (BEAKER) (test jbdr=0660) 100 WBC MORPHOLOGY (BEAKER) (test vxuc=747) Normal PLT MORPHOLOGY (BEAKER) (test whmh=881) Normal ANISOCYTOSIS (BEAKER) (test khgj=312) 2+ moderate MACROCYTES (BEAKER) (test elta=569) 2+ moderate POIKILOCYTES (BEAKER) (test zcvb=829) 3+ many HELLEN CELLS (BEAKER) (test avph=874) 2+ moderate ARTIFACT (CELLAVISION)(BEAKER) (test myrl=0950) Present PLATELET CONCENTRATION (CELLAVISION)(BEAKER) Decreased (test bubx=1741) Received comment: User comments: Slide comments:[id number] 07:44:00 Test Item Value Reference Range Comments MAGNESIUM (BEAKER) (test pysi=579) 1.8 mg/dL 1.6-2.6 BASIC METABOLIC [id number] 07:44:00 Test Item Value Reference Range Comments SODIUM (BEAKER) (test 133 meq/L 136-145 xfvr=353) POTASSIUM (BEAKER) (test 3.9 meq/L 3.5-5.1 speu=488) CHLORIDE (BEAKER) (test 106 meq/L 98-107 nnee=895) CO2 (BEAKER) (test 22 meq/L 22-29 wsdo=636) BLOOD UREA NITROGEN 31 mg/dL 7-21 (BEAKER) (test yemx=410) CREATININE (BEAKER) (test 0.87 mg/dL 0.57-1.25 nstw=842) GLUCOSE RANDOM (BEAKER) 93 mg/dL 70-105 (test lote=307) CALCIUM (BEAKER) (test 8.4 mg/dL 8.4-10.2 bsbu=351) EGFR (BEAKER) (test 90 mL/min/1.73 sq m ESTIMATED GFR IS NOT efxy=3508) ACCURATE CREATININE CLEARANCE IN PREDICTING GLOMERULAR FILTRATION RATE. ESTIMATED GFR IS NOT APPLICABLE FOR DIALYSIS PATIENTS. Specimen slightly ictericHEPATIC FUNCTION [id number] 07:44:00 Test Item Value Reference Range Comments TOTAL PROTEIN (BEAKER) (test nksl=769) 5.9 gm/dL 6.0-8.3 ALBUMIN (BEAKER) (test liqq=8463) 3.6 g/dL 3.5-5.0 BILIRUBIN TOTAL (BEAKER) (test harr=074) 2.5 mg/dL 0.2-1.2 BILIRUBIN DIRECT (BEAKER) (test hnjl=100) 0.7 mg/dL 0.1-0.5 ALKALINE PHOSPHATASE (BEAKER) (test qyab=457) 111 U/L 40-150 AST (SGOT) (BEAKER) (test ufvc=477) 55 U/L 5-34 ALT (SGPT) (BEAKER) (test vyot=769) 32 U/L 6-55 Specimen slightly ictericANTI-MITOCHONDRIAL AB, REFLEX TO [id number] 07:40: 00 Test Item Value Reference Range Comments SCAN RESULT (test djvj=[id number]) PROTHROMBIN [id number] 06:08:00 Test Item Value Reference Range Comments PROTIME (BEAKER) (test eawm=111) 21.1 seconds 11.9-14.2 INR (BEAKER) (test ooxt=735) 1.9 <=5.9 Effective 01/10/2019: PT Reference Range ChangeNew: 11.9-14.2 Previous: 11.7- 14.7RECOMMENDED COUMADIN/WARFARIN INR THERAPY RANGESSTANDARD DOSE: 2.0-3.0 Includes: PROPHYLAXIS for venous thrombosis, systemic embolization; TREATMENT for venous thrombosis and/or pulmonary embolus.HIGH RISK: Target INR is2.5-3.5 for patients wiht mechanical heart valves.BLOOD [id number] 01:01:00 Test Item Value Reference Range Comments CULTURE (BEAKER) (test zwad=9466) No growth in 5 days BLOOD [id number] 01:01:00 Test Item Value Reference Range Comments CULTURE (BEAKER) (test erco=2207) No growth in 5 days HIV-1 ANTIGEN WITH HIV-1/2 [id number] 19:19:00 Test Item Value Reference Range Comments HIV-1 ANTIGEN WITH HIV 1\T\2 ANTIBODY (2) Nonreactive Nonreactive (BEAKER) (test jgii=0288) PROTHROMBIN [id number] 17:45:00 Test Item Value Reference Range Comments PROTIME (BEAKER) (test luav=549) 25.8 seconds 11.9-14.2 INR (BEAKER) (test obnz=323) 2.5 <=5.9 Effective 01/10/2019: PT Reference Range ChangeNew: 11.9-14.2 Previous: 11.7- 14.7RECOMMENDED COUMADIN/WARFARIN INR THERAPY RANGESSTANDARD DOSE: 2.0-3.0 Includes: PROPHYLAXIS for venous thrombosis, systemic embolization; TREATMENT for venous thrombosis and/or pulmonary embolus.HIGH RISK: Target INR is2.5-3.5 for patients wiht mechanical heart valves.U/S, [id number] 17:23: 00Labs to be ordered:->Body Fluid Culture (w/Gram Stain, C\T\S)Reason for exam:->ascitesShould this be performed at the bedside?->NoFINAL REPORT Ultrasound guided paracentesis Clinical History: Ascites. Sedation: None. Inspector Returned Materials: Sylvie Jackson PA-C Supervising Physician: Zahra Woodall MD Disk Grinder: None. Estimated Blood Loss: < 1 mL. Specimen: 6400 mL of zulema fluid, samples sent to laboratory. Technique: Informed consent was obtained. The risks of pain, bleeding, infection, bowel perforation, injury to adjacent structures, and adverse medication reactions were discussed with the patient. After informed consent was obtained, the patient's abdomen was scanned. The right lower quadrant of the abdomen was selected for paracentesis. After the largest fluid pocket area was marked, and the anterior abdominal wall was evaluated with color Doppler to exclude presence of bloodvessels traversing the area, the skin was prepped and draped in the usual sterile manner. After local anesthesia was achieved with lidocaine, a 5 Spanish one-step catheter was advanced into the peritoneal cavity under ultrasound guidance. After completion of drainage, the catheter was removed. There was no evidence of complication. Impression:Successful ultrasound guided paracentesis. Signed: Zahra Woodall MDReport Verified Date/ Time: 06/19/2019 17:23:26 Reading Location: [facility] P006J Ultrasound Reading Room B -TYPE NATRIURETIC FACTOR (BNP)2019-06-19 16:22:00 Test Item Value Reference Range Comments B-TYPE NATRIURETIC PEPTIDE (BEAKER) (test 187 pg/mL 0-100 bcjm=066) COMPREHENSIVE METABOLIC [id number] 16:18:00 Test Item Value Reference Range Comments TOTAL PROTEIN (BEAKER) 5.0 gm/dL 6.0-8.3 (test nfme=254) ALBUMIN (BEAKER) (test 3.0 g/dL 3.5-5.0 zltc=3177) ALKALINE PHOSPHATASE 90 U/L 40-150 (BEAKER) (test aaji=118) BILIRUBIN TOTAL (BEAKER) 1.8 mg/dL 0.2-1.2 (test xdiq=239) SODIUM (BEAKER) (test 131 meq/L 136-145 njxt=830) POTASSIUM (BEAKER) (test 3.7 meq/L 3.5-5.1 uzot=631) CHLORIDE (BEAKER) (test 104 meq/L 98-107 zoqi=335) CO2 (BEAKER) (test 24 meq/L 22-29 gpdr=890) BLOOD UREA NITROGEN 37 mg/dL 7-21 (BEAKER) (test gbto=922) CREATININE (BEAKER) (test 0.88 mg/dL 0.57-1.25 axwu=487) GLUCOSE RANDOM (BEAKER) 94 mg/dL 70-105 (test sryf=040) CALCIUM (BEAKER) (test 7.9 mg/dL 8.4-10.2 rrar=418) AST (SGOT) (BEAKER) (test 39 U/L 5-34 xquz=538) ALT (SGPT) (BEAKER) (test 22 U/L 6-55 ljwi=790) EGFR (BEAKER) (test 89 mL/min/1.73 sq m ESTIMATED GFR IS NOT kjvn=7901) ACCURATE CREATININE CLEARANCE IN PREDICTING GLOMERULAR FILTRATION RATE. ESTIMATED GFR IS NOT APPLICABLE FOR DIALYSIS PATIENTS. [id number] 16:16:00 Test Item Value Reference Range Comments PHOSPHORUS (BEAKER) (test qkki=977) 1.7 mg/dL 2.3-4.7 [id number] 16:16:00 Test Item Value Reference Range Comments MAGNESIUM (BEAKER) (test qznc=738) 1.9 mg/dL 1.6-2.6 HEPATIC FUNCTION [id number] 16:16:00 Test Item Value Reference Range Comments TOTAL PROTEIN (BEAKER) (test qlhc=227) 5.0 gm/dL 6.0-8.3 ALBUMIN (BEAKER) (test spdz=7074) 3.0 g/dL 3.5-5.0 BILIRUBIN TOTAL (BEAKER) (test flfu=499) 1.8 mg/dL 0.2-1.2 BILIRUBIN DIRECT (BEAKER) (test zalt=287) 0.7 mg/dL 0.1-0.5 ALKALINE PHOSPHATASE (BEAKER) (test xcur=305) 90 U/L 40-150 AST (SGOT) (BEAKER) (test xwsh=720) 39 U/L 5-34 ALT (SGPT) (BEAKER) (test gojm=261) 22 U/L 6-55 CALCIUM, [id number] 15:50:00 Test Item Value Reference Range Comments CALCIUM IONIZED (BEAKER) (test ypio=174) 1.15 mmol/L 1.12-1.27 PH, BLOOD (BEAKER) (test urwe=3748) 7.37 CBC W/PLT COUNT & AUTO [id number] 15:48:00 Test Item Value Reference Range Comments WHITE BLOOD CELL COUNT (BEAKER) (test oacn=938) 6.8 K/ L 3.5-10.5 RED BLOOD CELL COUNT (BEAKER) (test omoj=245) 3.04 M/ L 4.63-6.08 HEMOGLOBIN (BEAKER) (test gfyi=079) 10.2 GM/DL 13.7-17.5 HEMATOCRIT (BEAKER) (test djmc=986) 29.0 % 40.1-51.0 MEAN CORPUSCULAR VOLUME (BEAKER) (test lkny=957) 95.4 fL 79.0-92.2 MEAN CORPUSCULAR HEMOGLOBIN (BEAKER) (test 33.6 pg 25.7-32.2 gdgw=820) MEAN CORPUSCULAR HEMOGLOBIN CONC (BEAKER) (test 35.2 GM/DL 32.3-36.5 ihvv=866) RED CELL DISTRIBUTION WIDTH (BEAKER) (test 14.0 % 11.6-14.4 dlgk=374) PLATELET COUNT (BEAKER) (test gxnk=003) 65 K/CU MM 150-450 MEAN PLATELET VOLUME (BEAKER) (test yqdt=219) 10.1 fL 9.4-12.4 NUCLEATED RED BLOOD CELLS (BEAKER) (test 0 /100 WBC 0-0 hxji=750) NEUTROPHILS RELATIVE PERCENT (BEAKER) (test 59 % wywk=404) LYMPHOCYTES RELATIVE PERCENT (BEAKER) (test 24 % latq=170) MONOCYTES RELATIVE PERCENT (BEAKER) (test 15 % hdux=011) EOSINOPHILS RELATIVE PERCENT (BEAKER) (test 2 % ienu=355) BASOPHILS RELATIVE PERCENT (BEAKER) (test 0 % hyds=733) NEUTROPHILS ABSOLUTE COUNT (BEAKER) (test 3.98 K/ L 1.78-5.38 bjcb=029) LYMPHOCYTES ABSOLUTE COUNT (BEAKER) (test 1.63 K/ L 1.32-3.57 uevg=734) MONOCYTES ABSOLUTE COUNT (BEAKER) (test frkp=687) 1.01 K/ L 0.30-0.82 EOSINOPHILS ABSOLUTE COUNT (BEAKER) (test 0.14 K/ L 0.04-0.54 xgew=642) BASOPHILS ABSOLUTE COUNT (BEAKER) (test mzze=572) 0.01 K/ L 0.01-0.08 IMMATURE GRANULOCYTES-RELATIVE PERCENT (BEAKER) 1 % 0-1 (test lpjj=4134) CALCIUM, [id number] 15:28:00 Test Item Value Reference Range Comments CALCIUM IONIZED (BEAKER) (test bgih=883) 0.91 mmol/L 1.12-1.27 PH, BLOOD (BEAKER) (test jyfi=1318) 7.38 VANCOMYCIN LEVEL, [id number] 15:19:00 Test Item Value Reference Range Comments VANCOMYCIN RANDOM (BEAKER) (test ptwo=222) 19.3 ug/mL Reference Range: No NormalsPROTHROMBIN [id number] 15:14:00 Test Item Value Reference Range Comments PROTIME (BEAKER) (test vqkl=579) 25.2 seconds 11.9-14.2 INR (BEAKER) (test urau=797) 2.4 <=5.9 Effective 01/10/2019: PT Reference Range ChangeNew: 11.9-14.2 Previous: 11.7- 14.7RECOMMENDED COUMADIN/WARFARIN INR THERAPY RANGESSTANDARD DOSE: 2.0-3.0 Includes: PROPHYLAXIS for venous thrombosis, systemic embolization; TREATMENT for venous thrombosis and/or pulmonary embolus.HIGH RISK: Target INR is2.5-3.5 for patients wiht mechanical heart valves.VARICELLA ZOSTER ANTIBODY, [id number] 11:26:00 Test Item Value Reference Range Comments VARICELLA ZOSTER IGG (AL) (BEAKER) (test rlvj=9423) 7.8 VARICELLA ZOSTER RESULT INTERPRETATIONS: <=0.8 Al Nonreactive: Presumed non-immune to VZV 0.9-1.0 Al Equivocal >=1.1 Al Reactive: Presumed immune to VZVCYTOMEGALOVIRUS ANTIBODY, [id number] 11:26:00 Test Item Value Reference Range Comments CYTOMEGALOVIRUS, IGG (BEAKER) (test ybgv=1854) Positive Negative, Equivocal CMV IgG Result Interpretation: </=0.8 Al Negative 0.9-1.0 Al Equivocal &gt ;/=1.1 Al PositiveEBV ANTIBODY, [id number] 11:26:00 Test Item Value Reference Range Comments BALDOMERO LANDRUM VIRAL CAPSID ANTIGEN IGG (BEAKER) Positive Negative, Equivocal (test sekc=4575) Baldomero Landrum Viral Capsid Antigen IgG Result Interpretation: </=0.8 Al Negative 0.9-1.0 Al Equivocal >/=1.1 Al PositiveANTI-NUCLEAR ANTIBODY (STEVEN) 2019-06-19 11:07:00 Test Item Value Reference Range Comments ANTI-NUCLEAR ANTIBODY (STEVEN) (BEAKER) (test Positive Negative sfwy=373) Test performed by IFA method.STEVEN TITER AND [id number] 11:07:00 Test Item Value Reference Range Comments STEVEN TITER (BEAKER) (test svfx=9083) :160 STEVEN PATTERN (BEAKER) (test amoa=8701) Speckled BODY FLUID CULTURE + GRAM [id number] 08:05:00 Test Item Value Reference Range Comments CULTURE (BEAKER) (test COAGULASE NEGATIVE Coagulase negative nalh=9871) STAPHYLOCOCCUS Staphylococcus Clindamycin (test code=10) Erythromycin (test code=4) Linezolid (test code=40) Nitrofurantoin (test code=23) Oxacillin (test code=14) Rifampin (test code=43) Tetracycline (test code=2) Trimethoprim + Sulfamethoxazole (test code=47) Vancomycin (test code=13) GRAM STAIN RESULT 1+ White blood cells (BEAKER) (test mcjz=4798) seen GRAM STAIN RESULT <1+ gram positive (BEAKER) (test cocci in clusters exhd=513476) CREATININE, RANDOM [id number] 04:53:00 Test Item Value Reference Range Comments CREATININE URINE (BEAKER) (test khzy=630) 97.6 mg/dL Reference Range: No NormalsPROTEIN, RANDOM [id number] 04:53:00 Test Item Value Reference Range Comments PROTEIN, URINE (BEAKER) (test fosb=1880) 21 mg/dL 0-14 URINALYSIS W/ [id number] 03:28:00 Test Item Value Reference Range Comments COLOR (BEAKER) (test haxm=784) Yellow CLARITY (BEAKER) (test ddai=075) Clear SPECIFIC GRAVITY UA (BEAKER) (test bssi=570) 1.024 1.001-1.035 PH UA (BEAKER) (test lssq=686) 6.0 5.0-8.0 PROTEIN UA (BEAKER) (test daek=009) 20 mg/dL Negative GLUCOSE UA (BEAKER) (test flmc=668) Negative Negative KETONES UA (BEAKER) (test geze=784) Trace Negative BILIRUBIN UA (BEAKER) (test ijfl=603) Negative Negative BLOOD UA (BEAKER) (test iqdf=909) Negative Negative NITRITE UA (BEAKER) (test pteg=902) Negative Negative LEUKOCYTE ESTERASE UA (BEAKER) (test tflj=241) Negative Negative UROBILINOGEN UA (BEAKER) (test pukc=059) 0.2 mg/dL 0.2-1.0 RBC UA (BEAKER) (test tjrk=616) 1 /HPF WBC UA (BEAKER) (test rtcd=877) 2 /HPF BACTERIA (BEAKER) (test kunx=291) Rare MUCUS (BEAKER) (test owfl=7133) Few SQUAMOUS EPITHELIAL (BEAKER) (test fsmk=093) < /HPF HYALINE CASTS (BEAKER) (test lpmx=549) 18 /LPF YEAST (BEAKER) (test uiee=2422) Few SOURCE(BEAKER) (test rorw=7679) VANCOMYCIN LEVEL, [id number] 20:38:00 Test Item Value Reference Range Comments VANCOMYCIN TROUGH (BEAKER) (test udzl=301) 26.8 ug/mL 10.0-20.0 [id number] 18:19:00Medical Cytology Report Case: [id number] Authorizing Provider: Phil Lutz MD Collected: 06/14/2019 1712 Ordering Location: [address] Received: 06/15/2019 1028 Service Pathologist: Randa Dudley MD Specimen: Ascites PERITONEAL FLUID (CYTOSPINS): - NEGATIVE FOR MALIGNANCY - Acute inflammation Signing Pathologist Direct Phone Line: [phone], HepC, cirrhosisPERITONEAL FLUID 1200 mls ascites; 4 cytospinsCollected: [id number]: [id number] [facility], Department of Pathology, [address] [place], [place] [id number], Tel [facility], [address] [place] [address], [facility], [facility] of Pathology, [address] [place] [address], Tel DODY FLUID CELL COUNT WITH [id number] 17:59:00 Test Item Value Reference Range Comments APPEARANCE FLUID (BEAKER) (test cjvn=089) Hazy Clear COLOR FLUID (BEAKER) (test aene=627) Yellow Colorless, Straw RBC FLUID (BEAKER) (test hsyf=223) 1877 /cu mm <=1 ADJUSTED WBC FLUID (BEAKER) (test msjp=2646) 246 /cu mm <=5 LINING CELLS (BEAKER) (test ctya=0981) 7 /cu mm <=1 NEUTROPHILS FLUID (BEAKER) (test rwpu=4344) 38 % LYMPHS FLUID (BEAKER) (test besz=278) 6 % MONO/MACROPHAGE FLUID (BEAKER) (test wvks=189) 55 % EOSINOPHILS FLUID (BEAKER) (test lsud=752) 1 % BASO FLUID (BEAKER) (test nwvo=547) 0 % CONTAINER BODY FLUID (BEAKER) (test vzea=8802) EDTA Tube BODY FLUID CULTURE + GRAM [id number] 13:57:00 Test Item Value Reference Range Comments CULTURE (BEAKER) (test fhjf=4197) No growth GRAM STAIN RESULT (BEAKER) (test <1+ White blood cells seen nqct=2255) GRAM STAIN RESULT (BEAKER) (test No organisms seen pylo=97638) CRYPTOCOCCAL [id number] 13:47:00 Test Item Value Reference Range Comments CRYPTOCOCCAL ANTIGEN, SERUM (BEAKER) (test Negative Negative, Interference anty=0763) HEPATITIS A ANTIBODY, [id number] 07:35:00 Test Item Value Reference Range Comments HEPATITIS A IGM ANTIBODY (BEAKER) (test Nonreactive Nonreactive vunf=535) HEPATIC FUNCTION [id number] 07:32:00 Test Item Value Reference Range Comments TOTAL PROTEIN (BEAKER) (test pjxo=586) 5.5 gm/dL 6.0-8.3 ALBUMIN (BEAKER) (test nkxw=4524) 2.6 g/dL 3.5-5.0 BILIRUBIN TOTAL (BEAKER) (test xcii=808) 1.2 mg/dL 0.2-1.2 BILIRUBIN DIRECT (BEAKER) (test ldrt=246) 0.8 mg/dL 0.1-0.5 ALKALINE PHOSPHATASE (BEAKER) (test sfdq=164) 106 U/L 40-150 AST (SGOT) (BEAKER) (test giwo=088) 30 U/L 5-34 ALT (SGPT) (BEAKER) (test hcnj=496) 21 U/L 6-55 BASIC METABOLIC [id number] 07:32:00 Test Item Value Reference Range Comments SODIUM (BEAKER) (test 131 meq/L 136-145 hhfg=157) POTASSIUM (BEAKER) (test 4.0 meq/L 3.5-5.1 pbcb=735) CHLORIDE (BEAKER) (test 107 meq/L 98-107 xobu=002) CO2 (BEAKER) (test 20 meq/L 22-29 zllk=881) BLOOD UREA NITROGEN 37 mg/dL 7-21 (BEAKER) (test lyck=336) CREATININE (BEAKER) (test 1.35 mg/dL 0.57-1.25 jeig=424) GLUCOSE RANDOM (BEAKER) 83 mg/dL 70-105 (test aisd=959) CALCIUM (BEAKER) (test 8.3 mg/dL 8.4-10.2 pfjp=407) EGFR (BEAKER) (test 54 mL/min/1.73 sq m ESTIMATED GFR IS NOT qgjc=1439) ACCURATE CREATININE CLEARANCE IN PREDICTING GLOMERULAR FILTRATION RATE. ESTIMATED GFR IS NOT APPLICABLE FOR DIALYSIS PATIENTS. CBC W/PLT COUNT & AUTO [id number] 07:10:00 Test Item Value Reference Range Comments WHITE BLOOD CELL COUNT (BEAKER) (test vjmg=026) 10.9 K/ L 3.5-10.5 RED BLOOD CELL COUNT (BEAKER) (test muko=480) 3.86 M/ L 4.63-6.08 HEMOGLOBIN (BEAKER) (test sidy=614) 12.8 GM/DL 13.7-17.5 HEMATOCRIT (BEAKER) (test ojqm=654) 37.8 % 40.1-51.0 MEAN CORPUSCULAR VOLUME (BEAKER) (test nbws=355) 97.9 fL 79.0-92.2 MEAN CORPUSCULAR HEMOGLOBIN (BEAKER) (test 33.2 pg 25.7-32.2 iqqw=013) MEAN CORPUSCULAR HEMOGLOBIN CONC (BEAKER) (test 33.9 GM/DL 32.3-36.5 zhtm=767) RED CELL DISTRIBUTION WIDTH (BEAKER) (test 14.2 % 11.6-14.4 nevv=629) PLATELET COUNT (BEAKER) (test bzgw=127) 91 K/CU MM 150-450 MEAN PLATELET VOLUME (BEAKER) (test swwc=817) 9.5 fL 9.4-12.4 NUCLEATED RED BLOOD CELLS (BEAKER) (test 0 /100 WBC 0-0 eocw=694) NEUTROPHILS RELATIVE PERCENT (BEAKER) (test 81 % wvoa=521) LYMPHOCYTES RELATIVE PERCENT (BEAKER) (test 9 % rzjf=140) MONOCYTES RELATIVE PERCENT (BEAKER) (test 8 % zerf=199) EOSINOPHILS RELATIVE PERCENT (BEAKER) (test 1 % uyrp=406) BASOPHILS RELATIVE PERCENT (BEAKER) (test 0 % dohl=028) NEUTROPHILS ABSOLUTE COUNT (BEAKER) (test 8.78 K/ L 1.78-5.38 ieab=623) LYMPHOCYTES ABSOLUTE COUNT (BEAKER) (test 0.99 K/ L 1.32-3.57 oxoe=337) MONOCYTES ABSOLUTE COUNT (BEAKER) (test otxe=028) 0.90 K/ L 0.30-0.82 EOSINOPHILS ABSOLUTE COUNT (BEAKER) (test 0.12 K/ L 0.04-0.54 qmjs=647) BASOPHILS ABSOLUTE COUNT (BEAKER) (test fnvq=563) 0.02 K/ L 0.01-0.08 IMMATURE GRANULOCYTES-RELATIVE PERCENT (BEAKER) 1 % 0-1 (test kgyc=7336) RAD, ABDOMEN/KUB, 1 VIEW [id number] 09:57:00Reason for exam:->emesis s/p abd surgeryFINAL REPORT RAD, ABDOMEN/KUB, 1 VIEW AP CLINICAL INDICATION: emesis s/p abdsurgery COMPARISON: Correlation to CT examination June 15, 2019 TECHNIQUE: Two frontal radiographs of the abdomen. IMPRESSION: The bowel gas pattern demonstrates diffuse gaseous distention throughout the small bowel loops. There is gaseous distention within the colon. Overall appearance favors ileus. No pneumatosis. The regional skeleton is intact. Signed: JR Mccormack Robert MDReport Verified Date/Time: 2018 09:57:36 Reading Location: [facility] [id number] Neuro Reading Room URIC [id number] 07:52:00 Test Item Value Reference Range Comments URIC ACID (BEAKER) (test pypm=019) 7.0 mg/dL 2.6-7.2 [id number] 07:52:00 Test Item Value Reference Range Comments MAGNESIUM (BEAKER) (test xank=485) 1.7 mg/dL 1.6-2.6 HEPATIC FUNCTION [id number] 07:52:00 Test Item Value Reference Range Comments TOTAL PROTEIN (BEAKER) (test wvpf=845) 5.3 gm/dL 6.0-8.3 ALBUMIN (BEAKER) (test zyol=9559) 2.7 g/dL 3.5-5.0 BILIRUBIN TOTAL (BEAKER) (test gdbh=617) 1.0 mg/dL 0.2-1.2 BILIRUBIN DIRECT (BEAKER) (test mvrp=279) 0.7 mg/dL 0.1-0.5 ALKALINE PHOSPHATASE (BEAKER) (test nobj=367) 105 U/L 40-150 AST (SGOT) (BEAKER) (test cpbi=284) 33 U/L 5-34 ALT (SGPT) (BEAKER) (test yjtj=083) 23 U/L 6-55 COMPREHENSIVE METABOLIC [id number] 07:52:00 Test Item Value Reference Range Comments TOTAL PROTEIN (BEAKER) 5.3 gm/dL 6.0-8.3 (test xbiz=911) ALBUMIN (BEAKER) (test 2.7 g/dL 3.5-5.0 myhq=8756) ALKALINE PHOSPHATASE 105 U/L 40-150 (BEAKER) (test luqc=627) BILIRUBIN TOTAL (BEAKER) 1.0 mg/dL 0.2-1.2 (test atlg=016) SODIUM (BEAKER) (test 128 meq/L 136-145 wceu=250) POTASSIUM (BEAKER) (test 4.1 meq/L 3.5-5.1 ahcy=247) CHLORIDE (BEAKER) (test 102 meq/L 98-107 byay=278) CO2 (BEAKER) (test 20 meq/L 22-29 fkda=412) BLOOD UREA NITROGEN 22 mg/dL 7-21 (BEAKER) (test bfcd=779) CREATININE (BEAKER) (test 1.03 mg/dL 0.57-1.25 nwqe=514) GLUCOSE RANDOM (BEAKER) 99 mg/dL 70-105 (test uoii=689) CALCIUM (BEAKER) (test 8.0 mg/dL 8.4-10.2 zvsf=413) AST (SGOT) (BEAKER) (test 33 U/L 5-34 uvhe=623) ALT (SGPT) (BEAKER) (test 23 U/L 6-55 vpwt=701) EGFR (BEAKER) (test 74 mL/min/1.73 sq m ESTIMATED GFR IS NOT gxdj=8036) ACCURATE CREATININE CLEARANCE IN PREDICTING GLOMERULAR FILTRATION RATE. ESTIMATED GFR IS NOT APPLICABLE FOR DIALYSIS PATIENTS. PT/[id number] 05:50:00 Test Item Value Reference Range Comments PROTIME (BEAKER) (test yrle=357) 21.5 seconds 11.9-14.2 INR (BEAKER) (test hprt=806) 2.0 <=5.9 PARTIAL THROMBOPLASTIN TIME (BEAKER) (test 37.4 seconds 22.5-36.0 sjtn=855) Effective 01/10/2019: PT Reference Range ChangeNew: 11.9-14.2 Previous: 11.7- 14.7RECOMMENDED COUMADIN/WARFARIN INR THERAPY RANGESSTANDARD DOSE: 2.0-3.0 Includes: PROPHYLAXIS for venous thrombosis, systemic embolization; TREATMENT for venous thrombosis and/or pulmonary embolus.HIGH RISK: Target INR is2.5-3.5 for patients wiht mechanical heart valves.For paracentesisFor paracentesisCBC W/ PLT COUNT & AUTO [id number] 05:48:00 Test Item Value Reference Range Comments WHITE BLOOD CELL COUNT (BEAKER) (test acmq=559) 13.8 K/ L 3.5-10.5 RED BLOOD CELL COUNT (BEAKER) (test cihh=298) 3.91 M/ L 4.63-6.08 HEMOGLOBIN (BEAKER) (test noah=005) 13.1 GM/DL 13.7-17.5 HEMATOCRIT (BEAKER) (test visj=268) 37.5 % 40.1-51.0 MEAN CORPUSCULAR VOLUME (BEAKER) (test ztyz=775) 95.9 fL 79.0-92.2 MEAN CORPUSCULAR HEMOGLOBIN (BEAKER) (test 33.5 pg 25.7-32.2 upyz=697) MEAN CORPUSCULAR HEMOGLOBIN CONC (BEAKER) (test 34.9 GM/DL 32.3-36.5 ehbo=731) RED CELL DISTRIBUTION WIDTH (BEAKER) (test 13.8 % 11.6-14.4 gdnu=652) PLATELET COUNT (BEAKER) (test epyf=475) 98 K/CU MM 150-450 MEAN PLATELET VOLUME (BEAKER) (test jgwk=247) 9.7 fL 9.4-12.4 NUCLEATED RED BLOOD CELLS (BEAKER) (test 0 /100 WBC 0-0 dwnz=787) NEUTROPHILS RELATIVE PERCENT (BEAKER) (test 86 % kyae=679) LYMPHOCYTES RELATIVE PERCENT (BEAKER) (test 6 % vgyq=517) MONOCYTES RELATIVE PERCENT (BEAKER) (test 7 % luwj=194) EOSINOPHILS RELATIVE PERCENT (BEAKER) (test 0 % cpxb=115) BASOPHILS RELATIVE PERCENT (BEAKER) (test 0 % zdgv=338) NEUTROPHILS ABSOLUTE COUNT (BEAKER) (test 11.84 K/ L 1.78-5.38 zmyu=325) LYMPHOCYTES ABSOLUTE COUNT (BEAKER) (test 0.85 K/ L 1.32-3.57 iuda=121) MONOCYTES ABSOLUTE COUNT (BEAKER) (test heql=284) 0.98 K/ L 0.30-0.82 EOSINOPHILS ABSOLUTE COUNT (BEAKER) (test 0.03 K/ L 0.04-0.54 dpfb=790) BASOPHILS ABSOLUTE COUNT (BEAKER) (test hjkl=169) 0.03 K/ L 0.01-0.08 IMMATURE GRANULOCYTES-RELATIVE PERCENT (BEAKER) 1 % 0-1 (test xonu=6566) POCT-GLUCOSE [id number] 20:57:00 Test Item Value Reference Range Comments POC-GLUCOSE METER (BEAKER) 97 mg/dL 70-110 : Notified RN/MD: TESTED AT (test vsqc=4292) [facility] [address] [place] [address], [id number]: Commissary Manager/Employee Development Manager [id number] for MARIO GATES VANCOMYCIN LEVEL, [id number] 20:43:00 Test Item Value Reference Range Comments VANCOMYCIN TROUGH (BEAKER) (test dvwz=845) 26.1 ug/mL 10.0-20.0 Draw 30 minutes prior to administering vancomycin doseHEPATITIS C PCR, [id number] 11:53:00 Test Item Value Reference Range Comments HCV NUMERIC RESULT (BEAKER) (test jfwl=8106) 8890 IU/mL <15 This test uses a Real-Time Polymerase Chain Reaction (RT-PCR) methodology and was performed using SHAMIKA Ampliprep/SHAMIKA TaqMan HCV test kit version 2.0 ( [employer]).Reportable range for this assay is 15 - 100,000, 000 IU per mL (1.18 - 8.00 Log IU/mL).BASIC METABOLIC [id number] 06:06:00 Test Item Value Reference Range Comments SODIUM (BEAKER) (test 128 meq/L 136-145 qfqw=910) POTASSIUM (BEAKER) (test 4.1 meq/L 3.5-5.1 Specimen slightly gsfe=547) hemolyzed CHLORIDE (BEAKER) (test 105 meq/L 98-107 hsxo=675) CO2 (BEAKER) (test 18 meq/L 22-29 xqdp=827) BLOOD UREA NITROGEN 16 mg/dL 7-21 (BEAKER) (test bhpz=927) CREATININE (BEAKER) (test 0.84 mg/dL 0.57-1.25 Specimen slightly nbxw=197) hemolyzed GLUCOSE RANDOM (BEAKER) 66 mg/dL 70-105 (test dmor=413) CALCIUM (BEAKER) (test 7.8 mg/dL 8.4-10.2 mvfw=619) EGFR (BEAKER) (test 94 mL/min/1.73 sq m ESTIMATED GFR IS NOT shnq=4097) ACCURATE CREATININE CLEARANCE IN PREDICTING GLOMERULAR FILTRATION RATE. ESTIMATED GFR IS NOT APPLICABLE FOR DIALYSIS PATIENTS. Call [id number] 05:51:00 Test Item Value Reference Range Comments MAGNESIUM (BEAKER) (test 1.8 mg/dL 1.6-2.6 Specimen slightly hemolyzed xygg=416) Call [id number] 05:51:00 Test Item Value Reference Range Comments PHOSPHORUS (BEAKER) (test 3.5 mg/dL 2.3-4.7 Specimen slightly hemolyzed neyp=251) Call [id number] 05:51:00 Test Item Value Reference Range Comments SODIUM (BEAKER) (test szzz=850) 128 meq/L 136-145 POTASSIUM (BEAKER) (test 4.1 meq/L 3.5-5.1 Specimen slightly hemolyzed xstq=721) CHLORIDE (BEAKER) (test 105 meq/L 98-107 dwkf=643) CO2 (BEAKER) (test omrc=375) 18 meq/L 22-29 Call [id number] FUNCTION [id number] 05:51:00 Test Item Value Reference Range Comments TOTAL PROTEIN (BEAKER) (test 5.2 gm/dL 6.0-8.3 Specimen slightly hemolyzed rkgs=731) ALBUMIN (BEAKER) (test 2.8 g/dL 3.5-5.0 Specimen slightly hemolyzed weba=3652) BILIRUBIN TOTAL (BEAKER) (test 1.7 mg/dL 0.2-1.2 Specimen slightly hemolyzed hpcc=436) BILIRUBIN DIRECT (BEAKER) (test 0.9 mg/dL 0.1-0.5 Specimen slightly hemolyzed ihfb=091) ALKALINE PHOSPHATASE (BEAKER) 99 U/L 40-150 (test bxbj=277) AST (SGOT) (BEAKER) (test 38 U/L 5-34 Specimen slightly hemolyzed unle=894) ALT (SGPT) (BEAKER) (test 20 U/L 6-55 Specimen slightly hemolyzed iapq=086) Call [id number] W/PLT COUNT & AUTO [id number] 05:32:00 Test Item Value Reference Range Comments WHITE BLOOD CELL COUNT 8.7 K/ L 3.5-10.5 (BEAKER) (test tebm=586) RED BLOOD CELL COUNT (BEAKER) 3.70 M/ L 4.63-6.08 (test ugde=135) HEMOGLOBIN (BEAKER) (test 12.2 GM/DL 13.7-17.5 lyyb=381) HEMATOCRIT (BEAKER) (test 37.3 % 40.1-51.0 oxvc=559) MEAN CORPUSCULAR VOLUME 100.8 fL 79.0-92.2 Discordant MCV results (BEAKER) (test fyws=000) compared to previous results; clinical correlation required. MEAN CORPUSCULAR HEMOGLOBIN 33.0 pg 25.7-32.2 (BEAKER) (test aozp=225) MEAN CORPUSCULAR HEMOGLOBIN 32.7 GM/DL 32.3-36.5 CONC (BEAKER) (test qivh=082) RED CELL DISTRIBUTION WIDTH 13.7 % 11.6-14.4 (BEAKER) (test efpy=126) PLATELET COUNT (BEAKER) (test 55 K/CU MM 150-450 yhrd=930) MEAN PLATELET VOLUME (BEAKER) 9.6 fL 9.4-12.4 (test zawv=920) NUCLEATED RED BLOOD CELLS 0 /100 WBC 0-0 (BEAKER) (test vlvp=374) NEUTROPHILS RELATIVE PERCENT 85 % (BEAKER) (test euyp=234) LYMPHOCYTES RELATIVE PERCENT 7 % (BEAKER) (test yjta=563) MONOCYTES RELATIVE PERCENT 7 % (BEAKER) (test yosf=693) EOSINOPHILS RELATIVE PERCENT 1 % (BEAKER) (test mtcj=407) BASOPHILS RELATIVE PERCENT 0 % (BEAKER) (test vdih=857) NEUTROPHILS ABSOLUTE COUNT 7.39 K/ L 1.78-5.38 (BEAKER) (test pmpq=728) LYMPHOCYTES ABSOLUTE COUNT 0.63 K/ L 1.32-3.57 (BEAKER) (test klrt=298) MONOCYTES ABSOLUTE COUNT 0.58 K/ L 0.30-0.82 (BEAKER) (test ypxe=188) EOSINOPHILS ABSOLUTE COUNT 0.07 K/ L 0.04-0.54 (BEAKER) (test vvtt=650) BASOPHILS ABSOLUTE COUNT 0.02 K/ L 0.01-0.08 (BEAKER) (test kmbx=799) IMMATURE GRANULOCYTES-RELATIVE 1 % 0-1 PERCENT (BEAKER) (test opbk=9844) BODY FLUID CELL COUNT WITH [id number] 17:26:00 Test Item Value Reference Range Comments APPEARANCE FLUID (BEAKER) (test mufe=731) Hazy Clear COLOR FLUID (BEAKER) (test dohk=192) Yellow Colorless, Straw RBC FLUID (BEAKER) (test bofo=637) 2250 /cu mm <=1 ADJUSTED WBC FLUID (BEAKER) (test vdsc=4304) 230 /cu mm <=5 LINING CELLS (BEAKER) (test hnrs=7157) 30 /cu mm <=1 NEUTROPHILS FLUID (BEAKER) (test nqwm=7332) 31 % LYMPHS FLUID (BEAKER) (test uayq=942) 3 % MONO/MACROPHAGE FLUID (BEAKER) (test ltqj=009) 66 % EOSINOPHILS FLUID (BEAKER) (test pfyz=744) 0 % BASO FLUID (BEAKER) (test ltab=165) 0 % CONTAINER BODY FLUID (BEAKER) (test tbsm=9691) EDTA Tube POCT-GLUCOSE [id number] 14:00:00 Test Item Value Reference Range Comments POC-GLUCOSE METER (BEAKER) 82 mg/dL 70-110 : TESTED AT [facility] [address] (test bsnl=2263) [facility], [address]: Commissary Manager/Employee Development Manager [id number] for EMILY SALAS VITAMIN D, [id number] 13:26:00 Test Item Value Reference Range Comments VITAMIN D 25-OH (BEAKER) (test sonl=2030) 7.7 ng/mL 6.6-49.9 Effective 05/25/2017: Reference Range ChangeNew: 6.6-49.9 ng/mL Previous: 13.0 -47.8 ng/mLRecommended Vitamin D Target Range: 30.0-40.0 ng/mLPT/[id number] 13:19:00 Test Item Value Reference Range Comments PROTIME (BEAKER) (test arhx=007) 18.6 seconds 11.9-14.2 INR (BEAKER) (test cpfp=758) 1.6 <=5.9 PARTIAL THROMBOPLASTIN TIME (BEAKER) (test 34.4 seconds 22.5-36.0 seyk=036) Effective 01/10/2019: PT Reference Range ChangeNew: 11.9-14.2 Previous: 11.7- 14.7RECOMMENDED COUMADIN/WARFARIN INR THERAPY RANGESSTANDARD DOSE: 2.0-3.0 Includes: PROPHYLAXIS for venous thrombosis, systemic embolization; TREATMENT for venous thrombosis and/or pulmonary embolus.HIGH RISK: Target INR is2.5-3.5 for patients wiht mechanical heart valves.VITAMIN [id number] 12:28:00 Test Item Value Reference Range Comments VITAMIN B12 (BEAKER) (test xbxc=834) 1585 pg/mL 213-816 FOLATE, [id number] 12:28:00 Test Item Value Reference Range Comments FOLATE (BEAKER) (test ffjs=703) 7.3 ng/mL >=7.0 PROTHROMBIN TIME/[id number] 10:44:00 Test Item Value Reference Range Comments PROTIME (BEAKER) (test noek=669) 18.6 seconds 11.9-14.2 INR (BEAKER) (test ihau=664) 1.6 <=5.9 Effective 01/10/2019: PT Reference Range ChangeNew: 11.9-14.2 Previous: 11.7- 14.7RECOMMENDED COUMADIN/WARFARIN INR THERAPY RANGESSTANDARD DOSE: 2.0-3.0 Includes: PROPHYLAXIS for venous thrombosis, systemic embolization; TREATMENT for venous thrombosis and/or pulmonary embolus.HIGH RISK: Target INR is2.5-3.5 for patients wiht mechanical heart valves.HEPATIC FUNCTION [id number] 10:03 :00 Test Item Value Reference Range Comments TOTAL PROTEIN (BEAKER) (test hqle=608) 5.7 gm/dL 6.0-8.3 ALBUMIN (BEAKER) (test duqa=8879) 2.9 g/dL 3.5-5.0 BILIRUBIN TOTAL (BEAKER) (test viuy=782) 1.9 mg/dL 0.2-1.2 BILIRUBIN DIRECT (BEAKER) (test hhwh=219) 0.9 mg/dL 0.1-0.5 ALKALINE PHOSPHATASE (BEAKER) (test umdk=339) 133 U/L 40-150 AST (SGOT) (BEAKER) (test hwdw=968) 41 U/L 5-34 ALT (SGPT) (BEAKER) (test efqm=010) 27 U/L 6-55 Call [phone] with results. Thank you.Specimen slightly ictericPOCT-GLUCOSE [id number] 09:30:00 Test Item Value Reference Range Comments POC-GLUCOSE METER (BEAKER) 86 mg/dL 70-110 : TESTED AT [address] (test lyjh=8285) [facility], [address]: Commissary Manager/Employee Development Manager [id number] for RANDALIYA TEAGUEA POCT-GLUCOSE [id number] 08:47:00 Test Item Value Reference Range Comments POC-GLUCOSE METER (BEAKER) 88 mg/dL 70-110 : TESTED AT [address] (test zlcb=6059) [facility], [address]: Commissary Manager/Employee Development Manager [id number] for ANA UREÑA POCT-GLUCOSE [id number] 07:56:00 Test Item Value Reference Range Comments POC-GLUCOSE METER (BEAKER) 63 mg/dL 70-110 : TESTED AT [address] (test kswg=6789) [facility], [address]: Commissary Manager/Employee Development Manager [id number] for ANA UREÑA CALCIUM, [id number] 07:26:00 Test Item Value Reference Range Comments CALCIUM IONIZED (BEAKER) (test meah=933) 1.06 mmol/L 1.12-1.27 PH, BLOOD (BEAKER) (test oqoc=7144) 7.33 [id number] 07:18:00 Test Item Value Reference Range Comments PHOSPHORUS (BEAKER) (test skhg=997) 3.4 mg/dL 2.3-4.7 Call [phone] with results. Thank you.[id number] 06:50:00 Test Item Value Reference Range Comments FERRITIN (BEAKER) (test tytk=225) 665 ng/mL 5-275 HEPATITIS C [id number] 06:45:00 Test Item Value Reference Range Comments HEPATITIS C ANTIBODY (BEAKER) (test qsjx=319) Reactive Nonreactive HEPATITIS B SURFACE [id number] 05:54:00 Test Item Value Reference Range Comments HEPATITIS B SURFACE ANTIBODY (BEAKER) (test < mIU/mL <8.0 plpd=586) BASIC METABOLIC [id number] 05:54:00 Test Item Value Reference Range Comments SODIUM (BEAKER) (test 122 meq/L 136-145 esgk=808) POTASSIUM (BEAKER) (test 3.8 meq/L 3.5-5.1 hkms=511) CHLORIDE (BEAKER) (test 95 meq/L 98-107 qpmz=671) CO2 (BEAKER) (test 23 meq/L 22-29 esxw=835) BLOOD UREA NITROGEN 17 mg/dL 7-21 (BEAKER) (test eqmm=435) CREATININE (BEAKER) (test 0.86 mg/dL 0.57-1.25 ggkd=811) GLUCOSE RANDOM (BEAKER) 62 mg/dL 70-105 (test xnbt=019) CALCIUM (BEAKER) (test 7.8 mg/dL 8.4-10.2 fwja=093) EGFR (BEAKER) (test 92 mL/min/1.73 sq m ESTIMATED GFR IS NOT bqgu=6287) ACCURATE CREATININE CLEARANCE IN PREDICTING GLOMERULAR FILTRATION RATE. ESTIMATED GFR IS NOT APPLICABLE FOR DIALYSIS PATIENTS. Call [phone] with results. Thank you.Specimen slightly [id number] -[id number] 05:50:00 Test Item Value Reference Range Comments MAGNESIUM (BEAKER) (test xtug=054) 1.9 mg/dL 1.6-2.6 Call [phone] with results. Thank you.URIC [id number] 05:50:00 Test Item Value Reference Range Comments URIC ACID (BEAKER) (test chyc=378) 6.5 mg/dL 2.6-7.2 Call [phone] with results. Thank you.Specimen slightly ictericTSH/FREE T4 IF [id number] 05:44:00 Test Item Value Reference Range Comments THYROID STIMULATING HORMONE (BEAKER) (test 3.92 uIU/mL 0.35-4.94 vorz=629) ALPHA FETOPROTEIN (AFP), TUMOR [id number] 05:41:00 Test Item Value Reference Range Comments ALPHA-FETOPROTEIN (BEAKER) (test lfpc=3403) 3.8 ng/mL <10.0 HEPATITIS B CORE ANTIBODY, [id number] 05:41:00 Test Item Value Reference Range Comments HEPATITIS B CORE TOTAL ANTIBODY (BEAKER) (test Nonreactive Nonreactive fgtj=998) HEPATITIS A ANTIBODY, [id number] 05:41:00 Test Item Value Reference Range Comments HEPATITIS A IGG ANTIBODY (BEAKER) (test Nonreactive Nonreactive aard=6932) HEPATITIS B SURFACE [id number] 05:41:00 Test Item Value Reference Range Comments HEPATITIS B SURFACE ANTIGEN (2) (BEAKER) (test Nonreactive Nonreactive iwej=5412) IMMUNOGLOBULIN G (IGG)2019-06-15 05:37:00 Test Item Value Reference Range Comments IMMUNOGLOBULIN G (IGG) (BEAKER) (test eooq=609) 1374 mg/dL 540-1,822 IMMUNOGLOBULIN M (IGM)2019-06-15 05:37:00 Test Item Value Reference Range Comments IMMUNOGLOBULIN M (IGM) (BEAKER) (test vydt=723) 246 mg/dL 22-293 IRON, TIBC, % SAT. (WITHOUT FERRITIN)2019-06-15 05:37:00 Test Item Value Reference Range Comments IRON (BEAKER) (test sqfq=995) 120.0 ug/dL 40.0-160.0 TOTAL IRON BINDING CAPACITY (BEAKER) (test 121 ug/dL 250-450 vuer=700) IRON % SATURATION (2) (BEAKER) (test lwwe=9352) 99 % 20-55 [id number]-[id number] 05:37:00 Test Item Value Reference Range Comments ALPHA-1 ANTITRYPSIN (BEAKER) (test dbas=146) 60.90 mg/dL 90.00-200.00 CBC W/PLT COUNT & AUTO [id number] 04:50:00 Test Item Value Reference Range Comments WHITE BLOOD CELL COUNT (BEAKER) (test epzu=784) 6.2 K/ L 3.5-10.5 RED BLOOD CELL COUNT (BEAKER) (test hepv=383) 3.87 M/ L 4.63-6.08 HEMOGLOBIN (BEAKER) (test oaxy=696) 12.8 GM/DL 13.7-17.5 HEMATOCRIT (BEAKER) (test bzul=816) 37.1 % 40.1-51.0 MEAN CORPUSCULAR VOLUME (BEAKER) (test znsf=420) 95.9 fL 79.0-92.2 MEAN CORPUSCULAR HEMOGLOBIN (BEAKER) (test 33.1 pg 25.7-32.2 ihxs=825) MEAN CORPUSCULAR HEMOGLOBIN CONC (BEAKER) (test 34.5 GM/DL 32.3-36.5 cqhi=046) RED CELL DISTRIBUTION WIDTH (BEAKER) (test 13.5 % 11.6-14.4 xway=991) PLATELET COUNT (BEAKER) (test npvw=967) 80 K/CU MM 150-450 MEAN PLATELET VOLUME (BEAKER) (test zbxb=452) 9.2 fL 9.4-12.4 NUCLEATED RED BLOOD CELLS (BEAKER) (test 0 /100 WBC 0-0 xnbi=925) NEUTROPHILS RELATIVE PERCENT (BEAKER) (test 72 % arkj=417) LYMPHOCYTES RELATIVE PERCENT (BEAKER) (test 15 % uwip=435) MONOCYTES RELATIVE PERCENT (BEAKER) (test 8 % lziq=734) EOSINOPHILS RELATIVE PERCENT (BEAKER) (test 4 % jffq=097) BASOPHILS RELATIVE PERCENT (BEAKER) (test 1 % vxaf=326) NEUTROPHILS ABSOLUTE COUNT (BEAKER) (test 4.44 K/ L 1.78-5.38 yjjx=095) LYMPHOCYTES ABSOLUTE COUNT (BEAKER) (test 0.93 K/ L 1.32-3.57 slqj=599) MONOCYTES ABSOLUTE COUNT (BEAKER) (test oiki=569) 0.51 K/ L 0.30-0.82 EOSINOPHILS ABSOLUTE COUNT (BEAKER) (test 0.22 K/ L 0.04-0.54 aygu=332) BASOPHILS ABSOLUTE COUNT (BEAKER) (test ndgi=744) 0.03 K/ L 0.01-0.08 IMMATURE GRANULOCYTES-RELATIVE PERCENT (BEAKER) 1 % 0-1 (test ldtl=1649) URINALYSIS W/ [id number] 04:40:00 Test Item Value Reference Range Comments COLOR (BEAKER) (test qwnk=665) Yellow CLARITY (BEAKER) (test qabk=309) Clear SPECIFIC GRAVITY UA (BEAKER) (test pupa=484) 1.011 1.001-1.035 PH UA (BEAKER) (test geis=759) 5.0 5.0-8.0 PROTEIN UA (BEAKER) (test ergu=826) Negative Negative GLUCOSE UA (BEAKER) (test wssq=261) Negative Negative KETONES UA (BEAKER) (test hppn=817) Negative Negative BILIRUBIN UA (BEAKER) (test diss=698) Negative Negative BLOOD UA (BEAKER) (test ghmv=920) Negative Negative NITRITE UA (BEAKER) (test wrpe=540) Negative Negative LEUKOCYTE ESTERASE UA (BEAKER) (test xgny=022) Negative Negative UROBILINOGEN UA (BEAKER) (test allz=008) 0.2 mg/dL 0.2-1.0 RBC UA (BEAKER) (test naez=956) 0 /HPF WBC UA (BEAKER) (test qbkp=657) 0 /HPF MUCUS (BEAKER) (test gbhu=2720) Rare HYALINE CASTS (BEAKER) (test riay=731) 6 /LPF SOURCE(BEAKER) (test ngln=1751) PROTEIN, RANDOM [id number] 04:36:00 Test Item Value Reference Range Comments PROTEIN, URINE (BEAKER) (test vwwe=4437) < mg/dL 0-14 CT, [id number] 03:01:00Is this for enterography?->YesFINAL REPORT CLINICAL HISTORY: Abdominal distention, concern for bowel obstruction. FINDINGS: Multiple axial images of the abdomen and pelvis were performed after the uncomplicated administration of IV contrast. Oral contrast was given. This exam was performed according to ourdepartmental dose- optimization program, which includes automated exposure control, adjustment of themA and/or kV according to patient size and/or use of the iterative reconstruction technique. Comparison:None. Lower chest: Right lower lobe atelectasis. No pleural effusion or pneumothorax. Visualized cardiac contours normal. Liver: The hepatic contour is nodular, consistent with cirrhosis Gallbladderand biliary tree: Previous cholecystectomy Spleen: No significant findings. Adrenal Glands: No significant findings. Kidneys and ureters: No significant findings. Stomach and Duodenum: No significant findings. Pancreas: No significant findings. Bowel: No bowel obstruction or pneumatosis intestinalis. Appendix: Normal. Bladder: No significant findings. Major vascular structures: Atherosclerotic calcifications. Portosystemic collaterals, including paraesophageal varices. Reproductive organs: No significant findings. Other: Moderate volume ascites. Collapsed umbilical hernia. Diffuse subcutaneous edema. No free intraperitoneal air. Skeleton: No acute bony abnormality. IMPRESSION: No bowel obstruction. Cirrhosis and evidence of portal hypertension. Signed: Rajesh Swain MDReport Verified Date/Time: 06/15/2019 03: 01:37 BODY FLUID CELL COUNT WITH [id number] 19:00:00 Test Item Value Reference Range Comments APPEARANCE FLUID (BEAKER) (test cakw=376) Hazy Clear COLOR FLUID (BEAKER) (test idla=943) Straw Colorless, Straw RBC FLUID (BEAKER) (test mcpt=768) 9 /cu mm <=1 ADJUSTED WBC FLUID (BEAKER) (test xbdn=2050) 61 /cu mm <=5 LINING CELLS (BEAKER) (test sgaf=9416) 2 /cu mm <=1 NEUTROPHILS FLUID (BEAKER) (test hllr=5029) 39 % LYMPHS FLUID (BEAKER) (test mqnf=074) 4 % MONO/MACROPHAGE FLUID (BEAKER) (test yuiv=448) 57 % EOSINOPHILS FLUID (BEAKER) (test tovd=051) 0 % BASO FLUID (BEAKER) (test jdln=556) 0 % CONTAINER BODY FLUID (BEAKER) (test csrt=8027) EDTA Tube ALBUMIN, BODY [id number] 18:56:00 Test Item Value Reference Range Comments ALBUMIN FLUID (BEAKER) (test vsro=235) < gm/dL Reference Range: No Normals Assay performance has not been validated for this type of specimen.CREATININE, RANDOM [id number] 14:12:00 Test Item Value Reference Range Comments CREATININE URINE (BEAKER) (test vsac=469) 63.4 mg/dL Reference Range: No NormalsSODIUM, RANDOM [id number] 14:12:00 Test Item Value Reference Range Comments SODIUM URINE (BEAKER) (test mmkw=301) 53 meq/L Reference Range: No NormalsOSMOLALITY, [id number] 13:51:00 Test Item Value Reference Range Comments OSMOLALITY URINE (BEAKER) (test bret=775) 438 mOsm/kg 40-1,400 OSMOLALITY, [id number] 13:40:00 Test Item Value Reference Range Comments OSMOLALITY, SERUM (BEAKER) (test apim=795) 266 mOsm/kg 275-295 PROTHROMBIN [id number] 13:04:00 Test Item Value Reference Range Comments PROTIME (BEAKER) (test qcsh=645) 13.0 sec 11.7-14.7 INR (BEAKER) (test glxo=640) 1.3 INR <=5.9 RECOMMENDED COUMADIN/WARFARIN INR THERAPY RANGESSTANDARD DOSE: 2.0 - 3.0 Includes: PROPHYLAXIS forvenous thrombosis, systemic embolization; TREATMENT for venous thrombosis and/or pulmonary embolus.HIGH RISK: Target INR is 2.5-3.5 for patients with mechanical heart valves.B-TYPE NATRIURETIC FACTOR (BNP)2019-05 12:03:00 Test Item Value Reference Range Comments B-TYPE NATRIURETIC PEPTIDE (BEAKER) (test xcbh=242) 42 pg/mL 0-100 [id number] 11:42:00 Test Item Value Reference Range Comments AMMONIA (BEAKER) (test 26 mol/L 18-72 Specimen slightly hemolyzed omaw=552) BASIC METABOLIC [id number] 11:41:00 Test Item Value Reference Range Comments SODIUM (BEAKER) (test 121 meq/L 136-145 bqgt=479) POTASSIUM (BEAKER) (test 4.8 meq/L 3.5-5.1 Specimen slightly hemolyzed dczy=506) CHLORIDE (BEAKER) (test 93 meq/L 98-107 ssmc=035) CO2 (BEAKER) (test ydlq=109) 23 meq/L 22-29 BLOOD UREA NITROGEN (BEAKER) 13 mg/dL 7-21 (test ffbd=356) CREATININE (BEAKER) (test 0.99 mg/dL 0.57-1.25 Specimen slightly hemolyzed myqo=501) GLUCOSE RANDOM (BEAKER) 94 mg/dL 70-105 (test yfgm=916) CALCIUM (BEAKER) (test 7.7 mg/dL 8.4-10.2 itdb=799) EGFR (BEAKER) (test INSUFFICIENT CLINICAL DATA TO imlv=7224) CALCULATE ESTIMATED GFR. [id number] 11:41:00 Test Item Value Reference Range Comments LIPASE (BEAKER) (test acbg=630) 136 U/L 8-78 [id number] 11:41:00 Test Item Value Reference Range Comments MAGNESIUM (BEAKER) (test 1.6 mg/dL 1.6-2.6 Specimen slightly hemolyzed issr=882) TROPONIN [id number] 11:41:00 Test Item Value Reference Range Comments TROPONIN I (BEAKER) (test aaco=707) < ng/mL 0.00-0.03 Troponin I (TnI) levels must be interpreted in the context of the presenting symptoms and the clinical findings. Elevated TnI levels indicate myocardial damage, but are not specific for ischemic heart disease. Elevated TnI levels are seen in patients with other cardiac conditions (including myocarditis and congestive heart failure), and slight TnI elevations occur in patients with other conditions, including sepsis, renal failure, acidosis, acute neurological disease, and persistent tachyarrhythmia.HEPATIC FUNCTION [id number] 11:41: 00 Test Item Value Reference Range Comments TOTAL PROTEIN (BEAKER) (test 6.8 gm/dL 6.0-8.3 Specimen slightly hemolyzed dgbu=199) ALBUMIN (BEAKER) (test 2.8 g/dL 3.5-5.0 Specimen slightly hemolyzed qqic=1794) BILIRUBIN TOTAL (BEAKER) (test 0.8 mg/dL 0.2-1.2 Specimen slightly hemolyzed fdau=937) BILIRUBIN DIRECT (BEAKER) (test 0.4 mg/dL 0.1-0.5 Specimen slightly hemolyzed zegg=682) ALKALINE PHOSPHATASE (BEAKER) 235 U/L 40-150 (test fwem=868) AST (SGOT) (BEAKER) (test 57 U/L 5-34 Specimen slightly hemolyzed zaiw=059) ALT (SGPT) (BEAKER) (test 52 U/L 6-55 Specimen slightly hemolyzed astw=174) RAD, CHEST, 1 VIEW, NON [id number] 11:25:00Reason for exam:->ABDOMINAL PAINShould this be performed at the bedside?->YesFINAL REPORT INDICATION: ABDOMINAL PAIN COMPARISON: None TECHNIQUE: Single frontal view of the chest. FINDINGS: Lungs and pleura: Clear lungs. No effusion.Heart and mediastinum: Normal heart size. Unremarkable mediastinal contours.Osseous structures: No acute abnormality.Other: None. IMPRESSION: No acute intrathoracic abnormality. Signed: Andrae Mcclain MDReport Verified Date/Time: 06/14/2019 11:25:01 Reading Location: [facility] Radiology Reading Room LACTIC ACID, [id number] 11:15:00 Test Item Value Reference Range Comments LACTATE BLOOD VENOUS (2) 1.6 mmol/L 0.5-2.2 Specimen slightly hemolyzed (BEAKER) (test yclw=9285) CBC W/PLT COUNT & AUTO [id number] 11:04:00 Test Item Value Reference Range Comments WHITE BLOOD CELL COUNT (BEAKER) (test ovcr=659) 8.6 K/ L 3.5-10.5 RED BLOOD CELL COUNT (BEAKER) (test rxaw=140) 4.26 M/ L 4.63-6.08 HEMOGLOBIN (BEAKER) (test umri=746) 14.2 GM/DL 13.7-17.5 HEMATOCRIT (BEAKER) (test eync=524) 40.4 % 40.1-51.0 MEAN CORPUSCULAR VOLUME (BEAKER) (test wmxo=453) 94.8 fL 79.0-92.2 MEAN CORPUSCULAR HEMOGLOBIN (BEAKER) (test 33.3 pg 25.7-32.2 yejs=070) MEAN CORPUSCULAR HEMOGLOBIN CONC (BEAKER) (test 35.1 GM/DL 32.3-36.5 jtwa=240) RED CELL DISTRIBUTION WIDTH (BEAKER) (test 13.8 % 11.6-14.4 basv=434) PLATELET COUNT (BEAKER) (test lahn=602) 143 K/CU MM 150-450 MEAN PLATELET VOLUME (BEAKER) (test ehwo=192) 9.7 fL 9.4-12.4 NEUTROPHILS RELATIVE PERCENT (BEAKER) (test 74 % rljt=597) LYMPHOCYTES RELATIVE PERCENT (BEAKER) (test 14 % nntr=673) MONOCYTES RELATIVE PERCENT (BEAKER) (test 10 % ykeq=427) EOSINOPHILS RELATIVE PERCENT (BEAKER) (test 1 % mcxz=882) BASOPHILS RELATIVE PERCENT (BEAKER) (test 0 % xngb=210) NEUTROPHILS ABSOLUTE COUNT (BEAKER) (test 6.37 K/ L 1.78-5.38 srhe=028) LYMPHOCYTES ABSOLUTE COUNT (BEAKER) (test 1.19 K/ L 1.32-3.57 imdu=781) MONOCYTES ABSOLUTE COUNT (BEAKER) (test 0.88 K/ L 0.30-0.82 bwlz=405) EOSINOPHILS ABSOLUTE COUNT (BEAKER) (test 0.10 K/ L 0.04-0.54 vpbv=037) BASOPHILS ABSOLUTE COUNT (BEAKER) (test 0.02 K/ L 0.01-0.08 bujf=127) IMMATURE GRANULOCYTES-RELATIVE PERCENT (BEAKER) 0 % 0-1 (test zjqg=2042)
--- OUTSIDE RECORDS SUMMARY | 2019-07-22 12:53 | XMS REPORT ---
:1960 Author Organization eClinicalWorks Care Team Providers Name Role Phone Ashley Le Provider Role Unavailable Allergies, Adverse Reactions, Alerts Substance Reaction Event Type N.K.D.A. Info Not Available Non Drug Allergy Problems Problem Type Condition Code Onset Dates Condition Status Assessment Polyarthralgia M25.50 Active Assessment Malnutrition, unspecified type E46 Active Assessment Other ascites R18.8 Active Assessment Generalized abdominal pain R10.84 Active Assessment S/P umbilical hernia repair, Z09 Active follow-up exam Problem Umbilical hernia without obstruction K42.9 Active and without gangrene Problem Gastroesophageal reflux disease, K21.9 Active esophagitis presence not specified Problem Memory problem R41.3 Active Problem Unspecified cirrhosis of liver K74.60 Active Problem Swelling R60.9 Active Problem Ventral hernia without obstruction K43.9 Active or gangrene Problem Malnutrition, unspecified type E46 Active Problem Skin lesion L98.9 Active Problem Polyarthralgia M25.50 Active Problem Rash and nonspecific skin eruption R21 Active Problem S/P umbilical hernia repair, Z09 Active follow-up exam Problem Bipolar disorder F31.9 Active Problem Other ascites R18.8 Active Problem Sinus problem J34.9 Active Problem Reflux K21.9 Active Problem Irritable bowel K58.9 Active Problem Generalized abdominal pain R10.84 Active Problem Depression screening Z13.31 Active Problem Depression F32.9 Active Problem Anxiety F41.9 Active Problem High blood pressure I10 Active Problem Circulation problem I99.9 Active Problem Prostate disorder N42.9 Active Problem Hepatitis C virus infection without B19.20 Active hepatic coma, unspecified chronicity Medications Medication Code Code Instructions Start End Status Dosage System Date Date Spironolactone [facility] [place] 10309489228 50 MG Orally Active 1 tablet Once a day Lactulose [facility] [place] 64597914293 10 GM/15ML Active 15 ml Orally Once daily Furosemide NDC 0 Orally Once Active 20 mg (1 daily in am tablet) Pepcid AC [facility] [place] [address] Orally as Active 1 tablet directed OTC as needed Gabapentin ND 90542599875 100 MG Orally 1 Active as directed capsule in am & 2 capsules in pm Omeprazole ND 03029299534 20 MG Orally May 24, Active 1 capsule Once a day for 2018 acid reflux Results No Known Results Summary Purpose eClinicalWorks Submission
--- OUTSIDE RECORDS SUMMARY | 2019-07-22 12:53 | XMS REPORT ---
:1960 Author Organization eClinical[employer] Care Team Providers Name Role Phone Ashley Le Provider Role Unavailable Allergies No Known Allergies Problems Problem Type Condition Code Onset Dates Condition Status Problem Umbilical hernia without obstruction K42.9 Active and without gangrene Problem Unspecified cirrhosis of liver K74.60 Active Problem Gastroesophageal reflux disease, K21.9 Active esophagitis presence not specified Problem Reflux K21.9 Active Problem Bipolar disorder F31.9 Active Problem Irritable bowel K58.9 Active Problem Memory problem R41.3 Active Problem Skin lesion L98.9 Active Problem Swelling R60.9 Active Problem Ventral hernia without obstruction K43.9 Active or gangrene Problem Other ascites R18.8 Active Problem Sinus problem J34.9 Active Problem Depression F32.9 Active Problem Anxiety F41.9 Active Problem Rash and nonspecific skin eruption R21 Active Problem Polyarthralgia M25.50 Active Problem Prostate disorder N42.9 Active Problem Hepatitis C virus infection without B19.20 Active hepatic coma, unspecified chronicity Problem Generalized abdominal pain R10.84 Active Problem High blood pressure I10 Active Problem Depression screening Z13.31 Active Problem Circulation problem I99.9 Active Medications No Known Medications Results No Known Results Summary Purpose eClinicalWorks Submission
--- OUTSIDE RECORDS SUMMARY | 2019-07-22 12:53 | XMS REPORT ---
:1960 Author Organization eClinicalWorks Care Team Providers Name Role Phone Ashley Le Provider Role Unavailable Allergies No Known Allergies Problems Problem Type Condition Code Onset Dates Condition Status Problem Unspecified cirrhosis of liver K74.60 Active Problem Swelling R60.9 Active Problem Ventral hernia without obstruction K43.9 Active or gangrene Problem Malnutrition, unspecified type E46 Active Problem Polyarthralgia M25.50 Active Problem Skin lesion L98.9 Active Problem Rash and nonspecific skin eruption R21 Active Problem Bipolar disorder F31.9 Active Problem S/P umbilical hernia repair, Z09 Active follow-up exam Problem Other ascites R18.8 Active Problem Sinus problem J34.9 Active Problem Reflux K21.9 Active Problem Irritable bowel K58.9 Active Problem Generalized abdominal pain R10.84 Active Problem Depression screening Z13.31 Active Problem Depression F32.9 Active Problem Anxiety F41.9 Active Problem High blood pressure I10 Active Problem Circulation problem I99.9 Active Problem Prostate disorder N42.9 Active Problem Umbilical hernia without obstruction K42.9 Active and without gangrene Problem Memory problem R41.3 Active Problem Hepatitis C virus infection without B19.20 Active hepatic coma, unspecified chronicity Problem Gastroesophageal reflux disease, K21.9 Active esophagitis presence not specified Medications No Known Medications Results No Known Results Summary Purpose eClinicalWorks Submission
[2019-07-22 14:30] LABS: Basophils % 0.3 % (0-1.3); Hematocrit 33.9 % (39.6-49.0); Lymphocytes % 15.1 % (15.3-44.8); MPV 8.7 fL (7.6-11.3); RBC Red Blood Cell Count 3.47 M/uL (4.33-5.43)
[2019-07-22 14:37] LABS: Albumin 2.4 g/dL (3.4-5.0); Bilirubin Direct 0.4 mg/dL (0-0.2); Protein, Total 7.1 g/dL (6.4-8.2)
[2019-07-22 14:39] LABS: Potassium 2.6 mmol/L (3.5-5.1)
[2019-07-22] MEDS ORDERED: POTASSIUM 25 MEQ EFFERV TAB ONE (14:54)
[2019-07-22] MEDS ORDERED: KCL 10 MEQ/100 ML IVPB 10 MEQ/100 ML BAG IV ONE (15:00)
--- NOTE | 2019-07-22 15:53 | RAD REPORT ---
EXAM DESCRIPTION: CT - Abdomen Pelvis W Contrast - 07/22/2019 3:31 pm CLINICAL HISTORY: DISTENTION, abdominal pain COMPARISON: April 19 TECHNIQUE: Biphasic, helical CT imaging of the abdomen and pelvis was performed following 100 ml non -ionic IV contrast. No oral contrast given. All CT scans are performed using dose optimization technique as appropriate and may include automated exposure control or mA/KV adjustment according to patient size. FINDINGS: No suspicious findings in the lung bases. The liver is small and nodular with a prominent left lobe. No focal liver parenchymal lesions seen. L iver is similar to comparison. Spleen is similar to comparison with no focal abnormality. No pancreat ic acute finding seen. Cholecystectomy clips are present. No biliary tree dilatation. Symmetric renal function is seen with no hydronephrosis or suspicious renal mass. No pyelonephritis o r acute parenchymal process. Urinary bladder is contracted. No gross abnormality. No adrenal abnormal ities. No dilated bowel loops or bowel wall thickening. No appendicitis findings. No free air or pneumatosis . Patient has massive ascites. Recannulized umbilical vein noted. No hernia, mass or bulky lymphadenop athy. No suspicious bony findings. IMPRESSION: Massive ascites similar to April 19 imaging. Cirrhosis of the liver similar to comparison. No focal liver lesion. Recannulized umbilical vein and prominent paraesophageal and upper abdominal varices are similar to comparison. No acute or GI finding.
[2019-07-22] MEDS ORDERED: POTASSIUM CL 10 MEQ in NA CHLORIDE 0.9% 100 ML IV ONE (16:00)
--- NOTE | 2019-07-22 16:01 | ER ---
Nurse's Notes [facility] Name: Alejandro Troncoso Age: 58 yrs Sex: Male : 1960 Arrival Date: 07/22/2019 Time: 12:51 Bed 7 Private MD: Ashley Le Diagnosis: Ascites Presentation: 07/22 13:01 Presenting complaint: Patient states: ABD distention that started today, reports having sg had this before where fluid had to be removed from the ABD, pt complains of shortness of breath and swelling to the lower extremities as well. Transition of care: patient was not received from another setting of care. Onset of symptoms was July 22, 2019. Risk Assessment: Do you want to hurt yourself or someone else? Patient reports no desire to harm self or others. Initial Sepsis Screen: Does the patient meet any 2 criteria? No. Patient's initial sepsis screen is negative. Does the patient have a suspected source of infection? No. Patient's initial sepsis screen is negative. Care prior to arrival: None. 13:01 Method Of Arrival: Wheelchair sg 13:01 Acuity: IBETH 3 sg Historical: - Allergies: 13:02 Codeine; sg - PMHx: 13:02 Bipolar disorder; Cirrhosis; Hepatitis C; Hypertension; PTSD; sg - Immunization history:: Adult Immunizations unknown. - Social history:: Smoking status: Patient/guardian denies using tobacco. - Ebola Screening: : Patient negative for fever greater than or equal to 101.5 degrees Fahrenheit, and additional compatible Ebola Virus Disease symptoms Patient denies exposure to infectious person Patient denies travel to an Ebola-affected area in the 21 days before illness onset No symptoms or risks identified at this time. Screenin:05 Abuse screen: Denies threats or abuse. Denies injuries from another. Nutritional ca1 screening: No deficits noted. Tuberculosis screening: No symptoms or risk factors identified. Fall Risk Fall in past 12 months (25 points). IV access (20 points). Gait- Weak (10 pts.). Total [place]rosco Fall Scale indicates High Risk Score (45 or more points). Fall prevention measures have been instituted. Side Rails Up X 2 Frequent Obs/Assessments Occuring As available patient and family educated on Fall Prevention Program and Strategies. Assessment: 13:05 General: Appears in no apparent distress. comfortable, Behavior is calm, cooperative, ca1 appropriate for age. General: Appears ill, slender. Pain: Complains of pain in abdomen Pain currently is 5 out of 10 on a pain scale. Pain began 3-4 days ago. Neuro: Level of Consciousness is awake, alert, obeys commands, Oriented to person, place, time, situation. Cardiovascular: Heart tones S1 S2 present Capillary refill < 3 seconds Patient's skin is warm and dry. Rhythm is sinus rhythm. Respiratory: Airway is patent Respiratory effort is even, unlabored, Respiratory pattern is regular, symmetrical. GI: Abdomen is round distended, Bowel sounds present X 4 quads. Abdomen is tender to palpation X 4 quads. GI: : No deficits noted. No signs and/or symptoms were reported regarding the genitourinary system. EENT: No deficits noted. No signs and/or symptoms were reported regarding the EENT system. Derm: Skin is intact, is healthy with good turgor, Skin is pink, warm \\T\\ dry. Musculoskeletal: Circulation, motion, and sensation intact. Capillary refill < 3 seconds. 14:13 Reassessment: Patient appears in no apparent distress at this time. Patient and/or ca1 family updated on plan of care and expected duration. Pain level reassessed. Patient is alert, oriented x 3, equal unlabored respirations, skin warm/dry/pink. 15:13 Reassessment: Patient appears in no apparent distress at this time. Patient is alert, ca1 oriented x 3, equal unlabored respirations, skin warm/dry/pink. 16:25 Reassessment: Patient appears in no apparent distress at this time. Patient is alert, ca1 oriented x 3, equal unlabored respirations, skin warm/dry/pink. Refused to stay in the hospital, states, "I have a doctor's appointment on Tuesday where they can drain the fluid from my belly. I don't want to get admitted for a day or 2 just to drain the fluids. I have this for a long time and I can just go to my GI and they drain it in their office and I can just go home after". AMA signed. Counseled by ED staff re risks. Advised to return to the ER if symptoms worsen prior to scheduled doctor's visit on Tuesday or anytime when needed. VS stable, pt ambulatory with walker. Vital Signs: 13:02 Pulse 87; Resp 20; Temp 98.8; Pulse Ox 94% on R/A; Weight 61.23 kg; Height 5 ft. 8 in. sg (172.72 cm); 14:13 BP 111 / 66; Pulse 80; Resp 18 S; Pulse Ox 99% on R/A; ca1 15:30 BP 133 / 88; Pulse 81; Resp 17 S; Pulse Ox 100% on R/A; ca1 16:25 BP 121 / 73; Pulse 81; Resp 19 S; Pulse Ox 100% on R/A; ca1 13:02 Body Mass Index 20.53 (61.23 kg, 172.72 cm) ED Course: 12:51 Patient arrived in ED. mr 12:52 Ashley Le MD is Private Physician. mr 13:00 Rafat Wood [facility]. pm1 13:00 Raj Soliman MD is Attending Physician. pm1 13:02 Triage completed. sg 13:02 Arm band placed on. sg 13:05 No provider procedures requiring assistance completed. Inserted saline lock: 22 gauge ca1 in right forearm, using aseptic technique. Blood collected. 13:17 Karina Valdez RN is Primary Nurse. ca1 14:06 Radiology exam delayed due to lab results not completed at this time. (BUN/Creatinine). mw3 14:13 Initial lab(s) drawn, by me, sent to lab. ca1 15:07 CT completed. Patient tolerated procedure well. Patient moved back from CT. bq 15:32 Abdomen In Process Unspecified. EDMS 16:34 IV discontinued, intact, bleeding controlled, No redness/swelling at site. Pressure ca1 dressing applied. Administered Medications: 15:00 Drug: Potassium Effervescent Tablet 50 mEq Route: PO; ca1 15:00 Drug: Potassium Chloride 10 mEq Route: IV; Rate: calculated rate; Site: right forearm; ca1 Outcome: 16:34 AMA AMA form signed ca1 16:34 Condition: stable 16:34 Patient left the ED. ca1 Signatures: Dispatcher [employer] EDMS Noman Guardado RN RN Juan JoseAtiya mr Dina Ram Rafat Cavanaugh NP BUSINESS DEVELOPMENT SPECIALIST pm1 Shelley Samaniego mw3 Karina Valdez RN RN ca1 Corrections: (The following items were deleted from the chart) 15:21 15:07 In radiology for Abdomen Pelvis W Con+CT.RAD.BRZ. EDMS EDMS 20:19 16:25 Reassessment: Patient appears in no apparent distress at this time. Patient is ca1 alert, oriented x 3, equal unlabored respirations, skin warm/dry/pink. Refused to stay in the hospital. AMA signed ca1
--- NOTE | 2019-07-22 16:01 | EDPHYS ---
Physician Documentation [facility] Name: Alejandro Troncoso Age: 58 yrs Sex: Male : 1960 Arrival Date: 07/22/2019 Time: 12:51 Bed 7 Private MD: Ashley Le ED Physician Raj Soliman HPI: 07/22 13:46 This 58 yrs old Male presents to ER via Wheelchair with complaints of pm1 Abdominal Swelling. 13:46 The patient presents with abdominal distention that is diffuse. pm1 13:46 Onset: The symptoms/episode began/occurred and became worse today. The symptoms do not pm1 radiate. Associated signs and symptoms: Pertinent positives: shortness of breath, Pertinent negatives: nausea, vomiting, and diarrhea, chest pain, fever. Modifying factors: The symptoms are alleviated by nothing, the symptoms are aggravated by nothing. Severity of pain: in the emergency department the pain is actually worse. The patient has experienced similar episodes in the past, and the symptoms today are exactly the same, to previous Ascites requiring drainage. The patient has not recently seen a physician, Used to see Dr. Escobar but had insurance change that resulted inability to be seen by him. Historical: - Allergies: 13:02 Codeine; sg - PMHx: 13:02 Bipolar disorder; Cirrhosis; Hepatitis C; Hypertension; PTSD; sg - Immunization history:: Adult Immunizations unknown. - Social history:: Smoking status: Patient/guardian denies using tobacco. - Ebola Screening: : Patient negative for fever greater than or equal to 101.5 degrees Fahrenheit, and additional compatible Ebola Virus Disease symptoms Patient denies exposure to infectious person Patient denies travel to an Ebola-affected area in the 21 days before illness onset No symptoms or risks identified at this time. ROS: 13:46 Constitutional: Negative for fever, chills, and weight loss, Eyes: Negative for injury, pm1 pain, redness, and discharge, ENT: Negative for injury, pain, and discharge, Neck: Negative for injury, pain, and swelling, Cardiovascular: Negative for chest pain, palpitations, and edema. 13:46 Back: Negative for injury and pain, : Negative for injury, bleeding, discharge, and swelling, MS/Extremity: Negative for injury and deformity, Skin: Negative for injury, rash, and discoloration, Neuro: Negative for headache, weakness, numbness, tingling, and seizure. 13:46 Respiratory: Positive for shortness of breath, Negative for cough, sputum production, wheezing. 13:46 Abdomen/GI: Positive for abdominal pain, abdominal distension, Negative for nausea, vomiting, and diarrhea. Exam: 13:46 Constitutional: This is a well developed, well nourished patient who is awake, alert, pm1 and in no acute distress. Head/Face: Normocephalic, atraumatic. Neck: Trachea midline, no thyromegaly or masses palpated, and no cervical lymphadenopathy. Supple, full range of motion without nuchal rigidity, or vertebral point tenderness. No Meningismus. Chest/axilla: Normal chest wall appearance and motion. Nontender with no deformity. No lesions are appreciated. Cardiovascular: Regular rate and rhythm with a normal S1 and S2. No gallops, murmurs, or rubs. Normal PMI, no JVD. No pulse deficits. Respiratory: Lungs have equal breath sounds bilaterally, clear to auscultation and percussion. No rales, rhonchi or wheezes noted. No increased work of breathing, no retractions or nasal flaring. 13:46 Back: No spinal tenderness. No costovertebral tenderness. Full range of motion. Skin: Warm, dry with normal turgor. Normal color with no rashes, no lesions, and no evidence of cellulitis. MS/ Extremity: Pulses equal, no cyanosis. Neurovascular intact. Full, normal range of motion. 13:46 Abdomen/GI: Inspection: distension, that is moderate, in the abdomen diffusely, Palpation: abdomen is soft and non-tender, mass, is not appreciated, rebound tenderness, is not appreciated. 13:46 Neuro: Orientation: is normal, Motor: is normal, moves all fours, Sensation: is normal, no obvious gross deficits. Vital Signs: 13:02 Pulse 87; Resp 20; Temp 98.8; Pulse Ox 94% on R/A; Weight 61.23 kg; Height 5 ft. 8 in. sg (172.72 cm); 14:13 BP 111 / 66; Pulse 80; Resp 18 S; Pulse Ox 99% on R/A; ca1 15:30 BP 133 / 88; Pulse 81; Resp 17 S; Pulse Ox 100% on R/A; ca1 16:25 BP 121 / 73; Pulse 81; Resp 19 S; Pulse Ox 100% on R/A; ca1 13:02 Body Mass Index 20.53 (61.23 kg, 172.72 cm) sg MDM: 13:25 Patient medically screened. pm1 15:50 ED course: Patient requested drainage in the ER and discussed with Attending MD. pm1 Patient's ascites should be handled by IR with observation admission. 15:57 Data reviewed: vital signs. Data interpreted: Pulse oximetry: on room air is 99 %. pm1 Interpretation: normal. 15:57 Counseling: I had a detailed discussion with the patient and/or guardian regarding: the pm1 historical points, exam findings, and any diagnostic results supporting the discharge/admit diagnosis, lab results, radiology results, the need for further work-up and treatment in the hospital, Admission for interventional radiology to perform drainage of ascites. 15:57 Refusal of service: The patient/guardian displays adequate decision making capability pm1 and despite a detailed discussion of alternatives, benefits, risks, and consequences refuses: Admission to the hospital for further work-up and treatment. 12 13:43 Order name: Basic Metabolic Panel; Complete Time: 14:46 pm1 12 13:43 Order name: CBC with Diff; Complete Time: 14:46 pm1 07/22 13:43 Order name: Creatinine for Radiology; Complete Time: 14:46 pm1 07/22 13:43 Order name: Hepatic Function; Complete Time: 14:46 pm1 07/22 13:43 Order name: Lipase; Complete Time: 14:46 pm1 07/22 13:43 Order name: IV Saline Lock; Complete Time: 14:08 pm1 07/22 13:43 Order name: Labs collected and sent; Complete Time: 14:08 pm1 07/22 15:31 Order name: Abdomen ; Complete Time: 15:56 EDMS Administered Medications: 15:00 Drug: Potassium Effervescent Tablet 50 mEq Route: PO; ca1 15:00 Drug: Potassium Chloride 10 mEq Route: IV; Rate: calculated rate; Site: right forearm; ca1 Disposition: 07/23 09:08 Co-signature as Attending Physician, Raj Soliman MD I agree with the assessment and kdr plan of care. Disposition: 07/22/19 15:59 Patient has left against medical advice. Impression: Ascites. - Patients states they are going to Home. - Condition is Stable. - Discharge Instructions: Ascites. Follow up: Emergency Department; When: Upon discharge from the Emergency Department; Reason: Recheck today's complaints, Continuance of care, Re-evaluation by your physician. - Problem is new. - Symptoms have improved. Signatures: Dispatcher [employer] EDPA Noman Guardado, DEMETRIUS RN sg Raj Soliman MD MD kdr Rafat Wood NP [employer] M pm1 Karina Valdez RN RN ca1 Corrections: (The following items were deleted from the chart) 07/22 15:21 13:44 Abdomen Pelvis W Con+CT.RAD.BRZ ordered. [facility] EDPA 15:31 15:21 Abdomen ordered. [facility] EDPA 15:59 15:59 07/22/2019 15:59 Patients has left against medical advice. Impression: Ascites. pm1 Patient states they are going to Home. Condition is Undetermined. Follow up: Emergency Department; When: Upon discharge from the Emergency Department; Reason: Recheck today's complaints, Continuance of care, Re-evaluation by your physician. Problem is new. Symptoms have improved. pm1 16:34 15:59 07/22/2019 15:59 Patients has left against medical advice. Impression: Ascites. ca1 Patient states they are going to Home. Condition is Stable. Follow up: Emergency Department; When: Upon discharge from the Emergency Department; Reason: Recheck today's complaints, Continuance of care, Re-evaluation by your physician. Problem is new. Symptoms have improved. pm1
[2019-07-22 18:29] VITALS: TEMP 98.8
[2019-07-22 18:31] VITALS: O2SAT 100
[2019-07-22 18:33] VITALS: BP 121/73
== END 2019-07-22 16:34 | disposition left against medical advice (07) ==
LOC: ER 12:48
DX: R06.02 Shortness of breath (principal); I10 Essential (primary) hypertension; Z88.5 Allergy status to narcotic agent
CPT/HCPCS: 36415; 74177; 80048; 80076; 83690; 85025; 96374; 99285; J3480